=== PATIENT | male | born 1945 | race Caucasian/White ===

== ENCOUNTER 2021-11-18 16:46 | Outpatient (CLI) | payer MEDICARE, BC, SELFPAY ==
--- OUTSIDE RECORDS SUMMARY | 2021-11-18 09:30 | XMS_ITS | Clinical Summary ---
:1945 Author Organization [facility] [place] [address] Care Team Providers Name Role Phone Lit Moody MD Primary Care Provider Allergies No known active allergies Medications Medication Sig Dispensed Refills Start Date End Date Status atorvastatin Take 20 mg by mouth 0 Active (LIPITOR) 20 mg once daily. tablet warfarin (COUMADIN) 5 mg other days and 0 10/16/2019 Active 5 mg tablet 7.5 mg Thurs carvediloL (COREG) Take 1 Tablet (6.25 180 Tablet 0 10/19/2021 Active 6.25 mg mg) by mouth in the tabletIndications: morning and 1 Paroxysmal atrial Tablet (6.25 mg) in fibrillation (HC) the evening. Must keep office appointment on 12/03/[address] Gutierrez for further refills.. Active Problems Patient Care Coordination Note Formatting of this note might be differe nt from the original. HF/Structural/Prevention Research Jose Luis banegas Review Date: 04/16/19 Upcoming Visit Location: [facility] Age: 73 y.o. Research Purpose Insurance Type: Medicar e/Medicaid EF: 60-65 Valve/Imaging: HF: DNQ Structural: Tendyne Gonzales: no d/t mod MR Prevention: DNQ Problem Noted Date Cardiomyopathy 10/24/2016 Overview: Presumed rate related Persistent atrial fibrillation 08/12/2016 Encounters Date Type Specialty Care Team Description 10/16/2021 Refill Jatin Gutierrez MD Refill Request (Carvedilol) from Last 3 Months Social History Tobacco Use Types Packs/Day Years Used Date Never Smoker Smokeless Tobacco: Never Used Alcohol Use Standard Drinks/Week Comments Yes 7 (1 standard drink = 0.6 oz pure alcoho l) a Glass of wine a night Alcohol Habits Answer Date Recorded How often do you have a drink containing Not asked alcohol? How many drinks containing alcohol do you have Not asked on a typical day when you are drinking? How often do you have six or more drinks on one Not asked occasion? Comment: a Glass of wine a night 10/14/2016 Sex Assigned at Date Recorded Not on file Obstetrics History Last Filed Vital Signs Vital Sign Reading Time Taken Comments Blood Pressure 138/86 10/14/2020 10:39 AM CDT Pulse 68 10/14/2020 10:39 AM CDT Temperature 36.8 ??C (98.2 ??F) 01/05/2019 8:51 AM CDT Respiratory Rate 18 01/05/2019 8:51 AM CDT Oxygen Saturation 98% 10/14/2020 10:39 AM CDT Inhaled Oxygen Concentration - - Weight 92.1 kg (203 lb) 10/14/2020 10:39 AM CDT Height 182.9 cm (6') 10/14/2020 10:39 AM CDT Body Mass Index 27.53 10/14/2020 10:39 AM CDT Plan of Treatment Upcoming Encounters Date Type Specialty Care Team Description 12/03/2021 Office Visit Jatin Gutierrez MD [address] [address] (Wo rk) Health Maintenance Due Date Last Done Comments Tdap 1956 Depression screening for age 12+ 1957 Hepatitis C screening for age 0709/04/1963 18-79 Tetanus booster 1965 Zoster (shingles) series for age 0709/04/1995 50+ (1 of 2) Medicare Wellness for age 65+ 2010 Pneumococcal series for age 65+ (1 2010 - PCV) COVID-19 vaccine series (3 - 10/22/2020 05/22/2020, 021 Booster for Moderna series) BMI (ht and wt on same day) for 10/14/2021 10/14/2020, 10/04, age 18+ 04/18/2019, Additional history exists Influenza for age 65+ 11/04/2021 Results Not on filefrom Last 3 Months Insurance Payer Benefit Plan / Subscriber ID Effective Dates Phone Addre ss Type Group MEDICARE PART A MEDICARE PART A [id number] 2010-Presen ATTN: CLAIMS - HB USE ONLY HB ONLY t [address] [place] [address] MEDICARE PART B MEDICARE PART B [id number] 2010-Presen ATTN: CLAIMS - HB USE ONLY HB ONLY t [address] [place] [address] BLUE CROSS MR BLUE CROSS [id number] 2016-Presen [address] [address] [address] [place], [place] [id number] BLUE CROSS BLUE CROSS [id number] 2016-[place]en [address] [address] [address] [place], [place] [id number] Advance Directives Latest Code Status on File Code Status Date Activated Date Inactivated Comments Full Code 01/04/2019 10:03 AM 01/05/2019 12:32 PM Full Code 08/20/2018 2:05 PM 08/20/2018 5:22 PM Full Code 12/02/2016 6:47 AM 12/02/2016 7:44 PM Full Code 10/25/2016 9:00 AM 10/27/2016 2:46 PM Full Code 10/24/2016 12:54 PM 10/25/2016 9:00 AM Care Teams Explosives Mixer Operator Relationship Specialty Start Date End Date Lit Moody MD PCP - General Internal Medicine 08/12/161999 [place] [address]
--- OUTSIDE RECORDS SUMMARY | 2021-11-18 09:31 | XMS_ITS | Encounter Summary ---
:1945 Author Organization [facility] Address [address] [place] [address] Care Team Providers Name Role Phone Elsewhere, Pcp Primary Care Provider Unavailable Encounter Details Date Type Department Care Team Description 01/08/2018 Orders Only Department of Shaylee Serrano, Malignant Neoplasm Of Dermatology in [place] Cohn Upper Arm Basal Cell [place], [place] [address] [facility] Carcinoma Right [address] [place] [address] (Primary Dx) [place] [phone] Social History Tobacco Use Types Packs/Day Years Used Date Smoking Tobacco: Passive Smoke Exposure - Never Smoker Smokeless Tobacco: Never Alcohol Habits Answer Date Recorded How often do you have a drink containing 4 or more times a w [place] 12/06/2019 alcohol? How many drinks containing alcohol do you have 1 or 2 12/06/2019 on a typical day when you are drinking? How often do you have six or more drinks on one Never 12/06/2019 occasion? Comment: Not asked Social Isolation Answer Date Recorded In a typical week, how many times do you Twice a week 12/06/2019 talk on the phone with family, friends, or neighbors? How often do you get together with friends Twice a week 12/06/2019 or relatives? How often do you attend evangelical or anabaptism More than 4 time s per year 12/06/2019 services? Do you belong to any clubs or organizations Yes 12/06/2019 such as evangelical groups, unions, fraternal or athletic groups, or school groups? How often do you attend meetings of the 1 to 4 times per yea r 12/06/2019 clubs or organizations you belong to? Are you now , , , 12/06/2019 , never or living with a partner? Physical Activity Answer Date Recorded On average, how many days per week do you engage in moderate to 2 days 12/06/2019 strenuous exercise (like walking fast, running, jogging, dancing, swimming, biking, or other activities that cause a light or heavy sweat)? On average, how many minutes do you engage in exercise at th is 100 min 12/06/2019 level? Stress Answer Date Recorded Do you feel stress - tense, restless, nervous, or Only a lit tle 12/06/2019 anxious, or unable to sleep at night because your mind is troubled all the time - these days? Financial Resource Strain Answer Date Recorded How hard is it for you to pay for the very basics like Not h jose at all 12/06/2019 food, housing, medical care, and heating? Food Insecurity Answer Date Recorded Within the past 12 months, you worried that your food would Never true 12/06/2019 run out before you got money to buy more. Within the past 12 months, the food you bought just didn't N ever true 12/06/2019 last and you didn't have money to get more. Transportation Needs Answer Date Recorded In the past 12 months, has lack of transportation kept you f rom No 12/06/2019 medical appointments or from getting medications? In the past 12 months, has lack of transportation kept you f rom No 12/06/2019 meetings, work, or getting things needed for daily living? Sex Assigned at Date Recorded Not on file documented as of this encounter Plan of Treatment Scheduled Orders Name Type Priority Associated Diagnoses Order S chedule Dermatology misc minor Dermatology Routine Malignant Neoplasm Of Expected: procedure Upper Arm Basal Cell 018 Carcinoma Right (Approximate ), Expires: 2020 documented as of this encounter Visit Diagnoses Diagnosis Malignant Neoplasm Of Upper Arm Basal Ce ll Carcinoma Right - Primary documented in this encounter Care Teams Adult School Teacher Relationship Specialty Start Date End Date Elsewhere, Pcp PCP - General Family Medicine 10/09/17 documented as of this encounter
--- OUTSIDE RECORDS SUMMARY | 2021-11-18 09:31 | XMS_ITS | Encounter Summary ---
:1945 Author Organization [facility] Address [address] [place] [address] Care Team Providers Name Role Phone Elsewhere, Pcp Primary Care Provider Unavailable Encounter Details Date Type Department Care Team Description 01/14/2021 Orders Only [facility] PCP [facility] Sa paul Rouse M.D. [address] [place], [place] [phone] (Wo rk) Social History Tobacco Use Types Packs/Day Years Used Date Smoking Tobacco: Passive Smoke Exposure - Never Smoker Smokeless Tobacco: Never Alcohol Use Standard Drinks/Week Comments Yes 7 (1 standard drink = 0.6 oz pure alcoho l) Alcohol Habits Answer Date Recorded How often do you have a drink containing 4 or more times a w [place] 12/06/2019 alcohol? How many drinks containing alcohol [...] or relatives? How often do you attend gnosticist or judaism More than 4 time s per year 12/06/2019 services? Do you belong to any clubs or organizations Yes 12/06/2019 such as gnosticist groups, unions, fraternal or athletic groups, or [...] or getting things needed for daily living? Education Answer Date Recorded What is the highest level of school you have completed or e Doctorate 12/05/2019 highest degree you have received? Sex Assigned at Date Recorded Not on file documented as of this encounter Plan of Treatment Not on filedocumented as of this encounter Visit Diagnoses Not on filedocumented in this encounter Care Teams Store Administrative Assistant Relationship Specialty Start Date End Date Elsewhere, Pcp PCP - General Family Medicine 10/09/17 documented as of this encounter
--- OUTSIDE RECORDS SUMMARY | 2021-11-18 09:31 | XMS_ITS | Encounter Summary ---
:1945 Author Organization [facility] Address [address] [place] [address] Care Team Providers Name Role Phone Elsewhere, Pcp Primary Care Provider Unavailable Reason for Visit Reason Comments Basal Cell Carcinoma C&C Encounter Details Date Type Department Care Team Description 01/23/2018 Procedure visit Department of Shaylee Serrano Malignant Neoplasm Of Dermatology in Aleksander Medellin M.D. Upper Arm Basal Cell [place], [place] [address] [facility] Carcinoma Right [address] [place] [phone] Social History Tobacco Use Types Packs/Day Years Used Date Smoking Tobacco: Passive Smoke Exposure - Never Smoker Smokeless Tobacco: Never Alcohol Habits Answer Date Recorded How often do you have a drink containing 4 or more times a w [place] 12/06/2019 alcohol? How many drinks containing alcohol [...] or relatives? How often do you attend orthodoxy or oriental orthodox More than 4 time s per year 12/06/2019 services? Do you belong to any clubs or organizations Yes 12/06/2019 such as orthodoxy groups, unions, fraternal or athletic groups, or [...] on file documented as of this encounter Progress Notes Shaylee Serrano M.D. - 01/23/2018 11:45 AM CST CHIEF COMPLAINT Return for curettage and cryotherapy of superficial basal cell carcinoma involving right posterior upper arm and right upper paraspinal back HISTORY OF THE PRESENT ILLNESS Remi Aguirre is a pleasant 72 y.o. male who follows up for curettage and cryotherapy of right posterior upper arm and right upper paraspinal back. The patient has a history of multiple basal cellcarcinomas involving the abdomen and arms. 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 White on 12/26/17. During my most recent visit with the patient on 01/01/18, I biopsied his right posterior upper arm and right upper paraspinal back to rule out basal cell carcinoma. Dermatopathology returned the right arm as superficial basal cell carcinoma closely approximating biopsy edge, and the right upper back as a superficial basal cell carcinoma involving biopsy border. The patient denies any changes, bleeding, or irritation of the lesions since the previous visit. PAST MEDICAL HISTORY 1. History of nodular basal cell carcinoma involving the right upper forehead status post Mohs by Dr. White on 12/26/17. 2. History of multiple basal cell carcinoma with one on the left abdomen and several on??his arms inthe 1980s. FAMILY HISTORY No family history of melanoma PHYSICAL EXAM General: Awake, alert, in no acute distress, and with appropriate affect. Skin: Examination of the right upper arm reveals a 1.8 cm x 1.2 cm erythematous plaque and healed biopsy site. Examination of the right upper paraspinal back reveals a 1.2 cm x 1.5 cm red scaly plaque and healed biopsy site. No evidence for infection No evidence of recurrence forehead IMPRESSION AND PLAN #1 Right posterior upper arm and right upper paraspinal back: Superficial basal cell carcinomas x 2 We recommend definitive treatment with curettage & cryotherapy. After explaining the procedure, discussing the associated risks, benefits, and alternatives, and obtaining verbal informed consent, the lesion(s) underwent treatment with curettage and cryotherapy in the standard fashion. We treated the sites with two [id number] freeze-thaw cycles of liquid nitrogencryotherapy. The patient tolerated the procedure well. Defect size for right posterior upper arm:2.3x1.8cm and defect size for right upper paraspinal back: 2.0x2.0cm. Wound care was discussed. Patient offered educational materials. PATIENT EDUCATION Ready to learn. No apparent learning barriers were identified. Learning preferences include listening. Explained diagnosis and treatment plan; patient/guardian of patient expressed understanding of thecontent. By signing my name below, Katerin Mancuso, attest that this documentation has been prepared under the direction and in the presence of Shaylee Serrano M.D.. Electronically Signed: armida Maria. 01/23/2018. 9:01 AM . I, Shaylee Serrano M.D., personally performed the services described in this documentation. All medical record entries made by the scribe were at my direction and in my presence. I have reviewed the chart and discharge instructions (if applicable) and agree that the record reflects my personal performance and is accurate and complete. Shaylee Serrano M.D. . 01/23/2018. 12:47 PM. BOTOMY SERVICES TECHNICIAN documented in this encounter Miscellaneous Notes Addendum Note - Delmy Fernández R.N. - 01/23/2018 11:45 AM PHLEBOTOMY SERVICES TECHNICIAN Addended by: DELMY FERNÁNDEZ on: 01/23/2018 01:54 PM Modules accepted: Orders BOTOMY SERVICES TECHNICIAN documented in this encounter Plan of Treatment Not on filedocumented as of this encounter Visit Diagnoses Diagnosis Malignant Neoplasm Of Upper Arm Basal Ce ll Carcinoma Right documented in this encounter Administered Medications Inactive Administered Medications - up to 3 most recent administrations Medication Order MAR Action Action Date Dose Rate Site lidocaine-EPINEPHrine 1 %-1:100,000 Given 01/23/2018 1:00 PM PHLEBOTOMY SERVICES TECHNICIAN 4 mL injection 4 mL (XYLOCAINE W/EPI) 4 mL, infiltration, Once, On Mon01/23/18 at 1400, For 1 dose documented in this encounter Care Teams Engineering Specialist Relationship Specialty Start Date End Date Elsewhere, Pcp PCP - General Family Medicine 10/09/17 documented as of this encounter
--- OUTSIDE RECORDS SUMMARY | 2021-11-18 09:31 | XMS_ITS | Encounter Summary ---
:1945 Author Organization [facility] Address [address] [place] [address] Care Team Providers Name Role Phone Elsewhere, Pcp Primary Care Provider Unavailable Encounter Details Date Type Department Care Team Description 12/26/2017 Ancillary Procedure Department of Dermatology Social History Tobacco Use Types Packs/Day Years Used Date Smoking Tobacco: Passive Smoke Exposure - Never Smoker Smokeless Tobacco: Never Alcohol Habits Answer Date Recorded How often do you have a drink containing 4 or more times a w [place] 12/06/2019 alcohol? How many drinks containing alcohol [...] or relatives? How often do you attend moravian or anabaptism More than 4 time s per year 12/06/2019 services? Do you belong to any clubs or organizations Yes 12/06/2019 such as moravian groups, unions, fraternal or athletic groups, or [...] Not on filedocumented as of this encounter Procedures Procedure Name Priority Date/Time Associated Comments Diagnosis DERMATOLOGY IMAGE Routine 12/26/2017 11:15 Result s for this EXAM AM CDT procedure are i n the results section. documented in this encounter Results DERMATOLOGY IMAGE EXAM (12/26/2017 11:15 AM CDT) Specimen (Source) Anatomical Collection Method Collection Time Re ceived Time Location / / Volume Laterality 12/26/2017 12:00 PM CDT Narrative [facility] - 12/26/2017 11:15 AM CDT This order has been created and auto-finalized to support the import of images acquired without order. The clini so documentation to support these images can be found on the encounter marley t produced images. Provider Not In System IMG NON RAD IMAGING PROCEDUR ES Performing Organization Address City/State/ZIP Code Phon e Number [facility] NA documented in this encounter Visit Diagnoses Not on filedocumented in this encounter Care Teams Sap Hana Developer Relationship Specialty Start Date End Date Elsewhere, Pcp PCP - General Family Medicine 10/09/17 documented as of this encounter
--- OUTSIDE RECORDS SUMMARY | 2021-11-18 09:31 | XMS_ITS | Encounter Summary ---
:1945 Author Organization [facility] Address [address] [place] [address] Care Team Providers Name Role Phone Unavailable Primary Care Provider Unavailable Encounter Details Date Type Department Care Team Description 06/27/2017 Abstract DATA ABSTRACTION Lewis Mckoy R.N. [address] [place], [place] [phone] Social History Tobacco Use Types Packs/Day Years Used Date Smoking Tobacco: Never Assessed Alcohol Habits Answer Date Recorded How often do you have a drink containing 4 or more times a w [place] 12/06/2019 alcohol? How many drinks containing alcohol [...] or relatives? How often do you attend adventism or taoist More than 4 time s per year 12/06/2019 services? Do you belong to any clubs or organizations Yes 12/06/2019 such as adventism groups, unions, fraternal or athletic groups, or [...]
--- OUTSIDE RECORDS SUMMARY | 2021-11-18 09:31 | XMS_ITS | Encounter Summary ---
:1945 Author Organization [facility] Address [address] [place] [address] Care Team Providers Name Role Phone Elsewhere, Pcp Primary Care Provider Unavailable Encounter Details Date Type Department Care Team Description 10/31/2017 Ancillary Procedure Department of Dermatology Social History Tobacco Use Types Packs/Day Years Used Date Smoking Tobacco: Passive Smoke Exposure - Never Smoker Smokeless Tobacco: Never Alcohol Habits Answer Date Recorded How often do you have a drink containing 4 or more times a w [place] 12/06/2019 alcohol? How many drinks containing alcohol [...] or relatives? How often do you attend confucianist or taoism More than 4 time s per year 12/06/2019 services? Do you belong to any clubs or organizations Yes 12/06/2019 such as confucianist groups, unions, fraternal or athletic groups, or [...] Date/Time Associated Comments Diagnosis DERMATOLOGY IMAGE Routine 10/31/2017 3:04 PM Resu lts for this EXAM CDT procedure are i n the results section. documented in this encounter Results DERMATOLOGY IMAGE EXAM (10/31/2017 3:04 PM CDT) Specimen (Source) Anatomical Collection Method Collection Time Re ceived Time Location / / Volume Laterality 10/31/2017 3:02 PM CDT Narrative [facility] - 10/31/2017 3:04 PM CDT This order has been created and [...] on filedocumented in this encounter Care Teams Power Lineworker Relationship Specialty Start Date End Date Elsewhere, Pcp PCP - General Family Medicine 10/09/17 documented as of this encounter
--- OUTSIDE RECORDS SUMMARY | 2021-11-18 09:31 | XMS_ITS | Encounter Summary ---
:1945 Author Organization [facility] Address [address] [place] [address] Care Team Providers Name Role Phone Elsewhere, [...] containing 4 or more times a w [place] 12/06/2019 alcohol? How many drinks containing alcohol [...] How often do you attend evangelical or church More than 4 time s per year [...] of images acquired without order. The clini os documentation to support these images can be found on the encounter marley t produced images. Provider Not In System IMG NON RAD IMAGING PROCEDUR ES Performing Organization Address City/State/ZIP Code Phon e Number [facility] NA documented in this encounter Visit Diagnoses Not on filedocumented in this encounter Care Teams Support Worker Relationship Specialty Start Date End Date Elsewhere, Pcp PCP - General Family Medicine 10/09/17 documented as of this encounter
--- OUTSIDE RECORDS SUMMARY | 2021-11-18 09:31 | XMS_ITS | Encounter Summary ---
:1945 Author Organization [facility] Address [address] [place] [address] Care Team Providers Name Role Phone Elsewhere, Pcp Primary Care Provider Unavailable Encounter Details Date Type Department Care Team Description 12/26/2017 Procedure visit Department of Vitaly Wihte Basal Ce ll Carcinoma Dermatology in M.D. Skin Other Parts Face [place], [place] [address] [facility] [address] [place] [id number] [phone] Social History Tobacco Use Types Packs/Day Years Used Date Smoking Tobacco: Passive Smoke Exposure - Never Smoker Smokeless Tobacco: Never Alcohol Habits Answer Date Recorded How often do you have a drink containing 4 or more times a w [place] 12/06/2019 alcohol? How many drinks containing alcohol [...] or relatives? How often do you attend sabianist or catholic More than 4 time s per year 12/06/2019 services? Do you belong to any clubs or organizations Yes 12/06/2019 such as sabianist groups, unions, fraternal or athletic groups, or [...] on file documented as of this encounter Last Filed Vital Signs Vital Sign Reading Time Taken Comments Blood Pressure 106/65 12/26/2017 9:00 AM CDT Pulse 61 12/26/2017 9:00 AM CDT Temperature - - Respiratory Rate - - Oxygen Saturation - - Inhaled Oxygen Concentration - - Weight - - Height - - Body Mass Index - - documented in this encounter Procedure Notes Price Flores M.D. - 12/26/2017 8:30 AM CDT PREOP INDICATION: REMOVAL. Date of Surgery: 12/26/2017 Surgeon: Dr. Vitaly White Playground Aide: Dr. Price Flores M.D. Location: [facility] Floor:16 Room:[facility] Visit Type: Outpatient PostOp Diagnosis: Nodular basal cell carcinoma Anatomic Location: Right forehead Preoperative size: 0.6 x 0.7 cm [facility] number: 8/7 Procedure: Mohs micrographic surgery with intermediate layered closure Prior to the procedure, final verification of the patient identity and correct marked surgical site was performed. Procedural pause conducted to verify: correct patient identity, procedure to be performed and as applicable, correct side and site, correct patient position, and availability of implants, special equipment or special requirements. INFORMED CONSENT Discussed the risks, benefits, alternatives, and the necessity of other members of the healthcare team participating in the procedure. All questions answered and consent given. PATIENT EDUCATION Ready to learn, no apparent learning barriers were identified; learning preferences include listening. Explained diagnosis and treatment plan; patient expressed understanding of the content. Preoperative medications: None The anesthesia used was 1% lidocaine and 0.25% bupivacaine with 1:200,000 epinephrine. The skin was prepped in a sterile fashion with Hibiclens. Histologic tumor-free marginswere obtained in 1 stages (2 blocks) by standard Mohs micrographic techniques with the Mohs surgeon performing both the surgery and pathology. Postoperative size: 0.8 x 1.0 cm. Anesthesia with 1% lidocaine with 1:200,000 epinephrine and another sterile prep were performed. An intermediate layered closure was planned, and Burow's triangles were excised from opposite poles of the defect in the direction of the skin tension lines. The wound was undermined, and hemostasis was obtained with electrocoagulation. The wound edges were closed with 5-0 Monocryl subcutaneous sutures and Dermabond for skin closure. Postoperative length: 3.2 cm. Estimated blood loss: Minimal. Complications: None. Wound care: Routine. Postoperative medications: None documented in this encounter Consult Notes Price Flores M.D. - 12/26/2017 8:30 AM CDT Referral Shaylee Serrano M.D. Chief Complaint Nodular basal cell carcinoma, right forehead HISTORY OF THE PRESENT ILLNESS Remi Aguirre is a pleasant 72 y.o. male who comes in for definitive surgical treatment of a recently biopsied nodular basal cell carcinoma from the right forehead. He was recently seen by Dr. Serrano on 10/31/2017 when the above lesion was sampled. He has a prior history of multiple nonmelanoma skin cancers but these are primarily occurred on his trunk and extremities. This is his 1st Mohs procedure. He has no other skin concerns today. He is otherwise well and in his normal state of health. He plans to be seen next week for full skin cancer screening evaluation. The dermatologic surgery preoperative information sheet was reviewed. The patient endorses a historyof prior skin cancer, atrial fibrillation, and high blood pressure. The patient denies a history of pacemaker, defibrillator, lung disease, liver disease, stroke, infectious disease, diabetes, organ transplant or bleeding problems. The patient denies artificial joints or other implants. He does not require antibiotics prior to other surgical procedures. Daily aspirin: None Anticoagulation: Coumadin, last INR 2.9 three weeks ago Tobacco use: None Alcohol use: Yes PHYSICAL EXAM Vitals: Blood pressure 106/65 pulse 61 General: Awake, alert, in no acute distress, and with appropriate affect. Skin: A limited skin examination was performed per patient preference. On the right forehead there is a small approximately 0.6 x 0.7 flesh-colored indented area corresponding to the biopsy site. No overt residual disease can be seen. No surrounding evidence of infection. IMPRESSION AND PLAN #1 Nodular basal cell carcinoma, right forehead The patient presents to our surgical area today for definitive treatment of the above lesion. Given the nature and location of this lesion we recommended Mohs surgery. We discussed the benefits of lesion removal today. We discussed the risks including, but not limited to, infection, bleeding, pain, scar formation, and lesion recurrence. We also discussed the risk to sensory and motor nerves in this area. Patient wished to proceed. In brief, the lesion was cleared in 1 stages and closed primarily. Dermabond was used for skin closure. The patient tolerated the procedure well. Please see the operativenote for further details. PROCEDURAL PAUSE Procedural pause conducted to verify: correct patient identity, procedure to be performed, and as applicable, correct side and site, correct patient position, and availability of implants, special equipment, or special requirements. PATIENT EDUCATION Ready to learn. No apparent learning barriers were identified. Learning preferences include listening. Explained diagnosis and treatment plan; patient/guardian of patient expressed understanding of thecontent. INFORMED CONSENT Discussed the risks, benefits, alternatives, and the necessity of other members of the healthcare team participating in the procedure. All questions answered and consent given. Associated attestation - Vitaly White M.D. - 12/26/2017 11:44 AM CDT I saw and evaluated the patient, participating in the forde elements of the service. I discussed the findings, assessment and plan with the resident and agree with resident???s findings and plan as documented in the resident's note. I was immediately available for the entirety of the procedure(s) and present for the forde and critical portions. documented in this encounter Plan of Treatment Pending Results Name Type Priority Associated Diagnoses Date/Ti al MOHS SURGICAL CASE Pathology and Routine 12/27/19 1:53 PM Cytology CDT documented as of this encounter Visit Diagnoses Diagnosis Basal Cell Carcinoma Skin Other Parts Fa ce documented in this encounter Administered Medications Active Administered Medications - up to 3 most recent administrations Medication Order MAR Action Action Date Dose Rate Site pumyvuszmqz-nfshapruj-ANYOQMYpvmr Given 12/26/2017 10:20 AM CDT 2 mL 0.25%-1%-1:200,000 injection 2-25 mL 2-25 mL, injection, As needed, may repeat if the patient complains of pain/discomfort at the site up to 50 mL for entire procedure, Starting on Mon12/26/17 at 0922 lidocaine-EPINEPHrine 1%-1:200,000 injection Given 8 10:20 AM CDT 2 mL 2-50 mL (XYLOCAINE W/EPI) 2-50 mL, infiltration, As needed, may repeat if the patient complains of pain/discomfort at the site up to 50 mL for entire procedure, Starting on Mon12/26/17 at 0922 documented in this encounter Care Teams Cardiac Cath Technician Relationship Specialty Start Date End Date Elsewhere, Pcp PCP - General Family Medicine 10/09/17 documented as of this encounter
--- OUTSIDE RECORDS SUMMARY | 2021-11-18 09:31 | XMS_ITS | Encounter Summary ---
:1945 Author Organization [facility] Address [address] [place] [address] Care Team Providers Name Role Phone Elsewhere, [...] containing 4 or more times a w [place] 12/06/2019 alcohol? How many drinks containing alcohol [...] or relatives? How often do you attend yazdanism or adventist More than 4 time s per year 12/06/2019 services? Do you belong to any clubs or organizations Yes 12/06/2019 such as yazdanism groups, unions, fraternal or athletic groups, or [...] on filedocumented in this encounter Care Teams Locomotive Boilermaker Relationship Specialty Start Date End Date Elsewhere, Pcp PCP - General Family Medicine 10/09/17 documented as of this encounter
--- OUTSIDE RECORDS SUMMARY | 2021-11-18 09:31 | XMS_ITS | Encounter Summary ---
:1945 Author Organization [facility] Address [address] [place] [address] Care Team Providers Name Role Phone Elsewhere, Pcp Primary Care Provider Unavailable Reason for Referral Outpatient (Routine) - Closed Specialty Diagnoses / Procedures Referred By Contact Refer red To Contact Dermatology Shaylee Serrano M.D . [facility] Region [address] [place] [address] Referral ID Status Reason Start Date Expiration Date Visits Requ ested Visits Authorized [id number] Closed 10/31/2017 10/31/2018 1 1 Reason for Visit Reason Comments Lesion non healing lesion on forehe ad that has been bleeding for apz 2-3 mos Appointment Request (Routine) - Closed Specialty Diagnoses / Procedures Referred By Contact Refer red To Contact Dermatology Referral ID Status Reason Start Date Expiration Date Visits Requ ested Visits Authorized [id number] Closed 10/09/2017 10/09/2018 1 1 Encounter Details Date Type Department Care Team Description 10/31/2017 Office Visit Department of Shaylee Serrano, Tumor Skin Uncertain Behavior (Primary Dx); Dermatology in [place] [facility] Keratosis [place], [place] [address] [phone] Social History Tobacco Use Types Packs/Day Years Used Date Smoking Tobacco: Passive Smoke Exposure - Never Smoker Smokeless Tobacco: Never Alcohol Habits Answer Date Recorded How often do you have a drink containing 4 or more times a w [place] 12/06/2019 alcohol? How many drinks containing alcohol [...] or relatives? How often do you attend cheondoism or christianity More than 4 time s per year 12/06/2019 services? Do you belong to any clubs or organizations Yes 12/06/2019 such as cheondoism groups, unions, fraternal or athletic groups, or [...] on file documented as of this encounter Consult Notes Shaylee Serrano M.D. 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 He presents for evaluation of a non-healing skin lesion on his forehead. The lesion has been present for about one year. He reports that this lesion bled intermittently for the last 2-3 months. The lesion would not completely heal. The patient has a history of multiple basal cell carcinomas with one on his left abdomen and several on his arms in the treated by an outside feed adviser Casper/Christina. Since moving to [place], [place] he has not had regular skin exams by his primary carephysician and he has not seen dermatology in many years. PAST MEDICAL HISTORY Multiple basal cell carcinoma with one on the left abdomen and several on his arms in the PHYSICAL EXAM General: Awake, alert, in no acute distress, and with appropriate affect. Skin: Examination of the right central forehead reveals a 4 mm x 4.5 mm pearly papule with some telangectasia suspicious for a basal cell carcinoma. Examination of the right presybeterian area reveals a dilated pore. Examination of the left cheek reveals several sebaceous hyperplasia. Examination of the leftear helix reveals three actinic keratoses. Examination of the left forehead reveals one actinic keratosis. IMPRESSION AND PLAN #1 Right central forehead (right forehead): Rule out basal cell carcinoma We recommend a shave biopsy. Photograph taken today with patient's verbal consent. We will correspond as to the results and if any further treatment is needed. PROCEDURAL PAUSE Procedural pause conducted to verify: correct patient identity, procedure to be performed, and as applicable, correct side and site, correct patient position, and availability of implants, special equipment, or special requirements. PROCEDURE DETAILS Shave biopsy. We explained the potential diagnosis and recommended that we obtain a biopsy. The risks and benefitsof the procedure were discussed, and the patient consented to these procedures. The patient denies any allergies to local anesthetics. Using 1% lidocaine without epinephrine for local anesthesia due tothe potential drug interaction with his Coreg, a shave biopsy was obtained from the right central forehead. Biopsy submitted to Dermatopathology for H&E. Special stains will be performed as indicated. The bleeding was well controlled with application of aluminum chloride. Dressing was applied, andwound care instructions were explained. Biopsy results and any further recommendations will be communicated to the patient by letter. Patient given pamphlet [id number]. Discussed the risks, benefits, alternatives, and the necessity of other members of the healthcare team participating in the procedure. All questions answered and consent given. If the biopsy is positive the patient will be referred to [place] for Mohs surgery. I explained to him what is involved with Mohs surgery. #2 Left ear and left forehead: Actinic keratosis CONSENT Discussed the risks, benefits, alternatives, and the necessity of other members of the healthcare team participating in the procedure. All questions answered and consent given. ?? PROCEDURE INFORMATION Given the precancerous nature of this lesion(s), treatment is medically indicated. After discussion of the risks, benefits and alternatives to treatment with cryotherapy, informed consent was obtained.We treated a total of 4 lesion(s) with two 20-second freeze-thaw cycles of liquid nitrogen cryotherapy. The patient tolerated the procedure well. Aftercare instructions were provided in written and verbal form to the patient. Should any of these lesions recur, the patient should return for biopsy or further evaluation. Follow up in 1-2 months for recheck if these do not completely resolve. #3 Right presybeterian: Dilated pore I reviewed treatment options with the patient including surgical removal, tretinoin cream or continued observation. I do not recommend surgical removal. I offered tretinoin cream however I did explain that this may not lead to resolution. The patient prefers continued observation at this time. I have asked the patient to return in the next 1-2 months for a full skin exam. PATIENT EDUCATION Ready to learn. No apparent learning barriers were identified. Learning preferences include listening. Explained diagnosis and treatment plan; patient/guardian of patient expressed understanding of thecontent. By signing my name below, I, Gaurang Chappell, attest that this documentation has been prepared underthe direction and in the presence of Shaylee Serrano M.D.. Electronically Signed: armida Starks. 10/31/2017. 2:33 PM . I, Shaylee Serrano M.D., personally performed the services described in this documentation. All medical record entries made by the scribe were at my direction and in my presence. I have reviewed the chart and discharge instructions (if applicable) and agree that the record reflects my personal performance and is accurate and complete. Shaylee Serrano M.D. . 10/31/2017. 4:40 PM. documented in this encounter Plan of Treatment Scheduled Referrals Name Type Priority Associated Order Schedule Diagnoses Dermatology office Outpatient Referral Routine Ex pected: visit (clinic) 10/31/2017 (Approximate), Expires: 10/31/2020 documented as of this encounter Procedures Procedure Name Priority Date/Time Associated Comments Diagnosis DERMATOPATHOLOGY CONSULT Routine 10/31/2017 3:11 Tumor Skin Results for this PM CDT Uncertain Behavior procedure are in the results section. documented in this encounter Results Dermatopathology Consult (10/31/2017 3:11 PM CDT) Component Value Ref Test Analysis Performed At [facility] [employer] Range Method Time Signature Gross Received in formalin labeled with the patient's name, 11/07/2017 [facility] Description: medical record number, and right forehead is a 0.5 x 0.3 4:00 PM CDT LABORATORIES - x 0.1 cm pale olguin skin shave biopsy. No discrete lesion is [facility] grossly identified on the skin surface. ??The specimen is CAMPUS bisected and submitted entirely in cassette A1. Grossed by RICKY. Participated in [place] Shi, 11/07/2017 [facility] the D.OSunshine-Patholog 4:00 PM CDT LABORATORIES - Interpretation y Fellow [facility] Report Armani Elder 11/07/2017 [facility] electronically Luz Maria, 4:00 PM CDT LABORATORIES - signed by Suki [facility] 11/07/2017 [facility] 4:00 PM CDT LABORATORIES - [facility] Interpetation FINAL DIAGNOSIS 11/07/2017 [facility] A. ??DermPath Consult Wet Tissue; Right forehead , Skin 4:00 PM CDT LABORATORIES - shave biopsy: ??Nodular basal cell carcinoma, involving [facility] Specimen Anatomical Collection Method Collection Time Receive d Time (Source) Location / / Volume Laterality Tissue 10/31/2017 3:11 PM 8 CDT 10:24 AM CDT Narrative This result has an attachment that is no t available. Shaylee Serrano M.D. LAB PATH DERM ORDERABLES Performing Organization Address City/State/ZIP Code Phon e Number [facility] LABORATORIES - [address] [place], [place] [address] [facility] documented in this encounter Visit Diagnoses Diagnosis Tumor Skin Uncertain Behavior - Primary Keratosis Actinic documented in this encounter Administered Medications Inactive Administered Medications - up to 3 most recent administrations Medication Order MAR Action Action Date Dose Rate Site lidocaine 10 mg/mL (1 %) injection 1 Given 10/31/2017 3:58 PM CD T 1 mL mL (XYLOCAINE) 1 mL, infiltration, Once, On Mon10/31/17 at 1515, For 1 dose documented in this encounter Care Teams Couturiere Relationship Specialty Start Date End Date Elsewhere, Pcp PCP - General Family Medicine 10/09/17 documented as of this encounter
--- OUTSIDE RECORDS SUMMARY | 2021-11-18 09:31 | XMS_ITS | Encounter Summary ---
:1945 Author Organization [facility] Address [address] [place] [address] Care Team Providers Name Role Phone Elsewhere, Pcp Primary Care Provider Unavailable Reason for Visit Reason Comments Skin Check Appointment Request (Routine) - Closed Specialty Diagnoses / Procedures Referred By Contact Refer red To Contact Dermatology Referral ID Status Reason Start Date Expiration Date Visits Requ ested Visits Authorized [id number] Closed 06/09/2020 06/09/2021 1 1 Encounter Details Date Type Department Care Team Description 08/31/2020 Office Visit Department of Shaylee Serrano, Keratosis Actinic (Primary Dx); Dermatology in [place], [place] [address] [facility] Keratosis Seborrheic [address] [phone] Social History Tobacco Use Types Packs/Day Years Used Date Smoking Tobacco: Passive Smoke Exposure - Never Smoker Smokeless Tobacco: Never Alcohol Use Standard Drinks/Week Comments Yes 7 (1 standard drink = 0.6 oz pure alcoho l) Alcohol Habits Answer Date Recorded How often do you have a drink containing 4 or more times a w [place] 12/06/2019 alcohol? How many drinks containing alcohol [...] or relatives? How often do you attend advent or christian More than 4 time s per year 12/06/2019 services? Do you belong to any clubs or organizations Yes 12/06/2019 such as advent groups, unions, fraternal or athletic groups, or [...] level of school you have completed or th e Doctorate 12/05/2019 highest degree you have received? Sex Assigned at Date Recorded Not on file documented as of this encounter Progress Notes Shaylee Serrano M.D. - 08/31/2020 4:00 PM CDT SUBJECTIVE CHIEF COMPLAINT / REASON FOR VISIT Skin cancer recheck HISTORY OF PRESENT ILLNESS Mr. Remi Aguirre is a 74 y.o. male who presents today for a full skin cancer screening examination. The patient was last seen by me in Dermatology clinic on 02/11/2020. The patient has a history of multiple non melanoma skin cancers, most recently superficial basal cell carcinoma??x 2 involving??right posterior upper arm and right upper paraspinal back,??status post curettage and cryotherapy here??at [facility]??on 01/23/18. The patient denies a personal or family history for melanoma. No areas of concern today. No Known Allergies MEDICAL HISTORY 1. Several??basal cell carcinomas involving left abdomen and arms, treated elsewhere in the 2.Nodular basal cell carcinoma??involving??right upper forehead,??status post Mohs surgery??on 12/26/17??by Dr. White??at [facility] 3.??Superficial basal cell carcinoma??x2 involving??right posterior upper arm and right upper paraspinal back,??status post curettage and cryotherapy here??at [facility]??on 01/23/18 4. Negative for melanoma ?? FAMILY HISTORY No family history for melanoma. OBJECTIVE PHYSICAL EXAMINATION General: Awake, alert, in no acute distress, and with appropriate affect. Eyes: No scleral injection or icterus. No eyelid abnormalities. Lymph: No lower extremity edema. Skin: I have examined the scalp, face, neck, chest, abdomen, back, bilateral upper extremities, and bilateral lower extremities. Examination of the left abdomen, arms, right posterior upper arm, right upper paraspinal back, rightupper forehead reveals no clinical evidence for local recurrence of non melanoma skin cancers. Examination today reveals a total of 12 AKs, includin left ear helix, 1 left upper forehead, 2 left cheek, 5 left forearm, 1 right sauceda, 2 left sauceda Examination of face, trunk, and extremities reveals multiple benign appearing nevi and lentigines, and multiple SKs. Examination today reveals no suspicious lesions for skin cancer. ASSESSMENT / PLAN #1 Left abdomen, arms, right posterior upper arm, right upper paraspinal back, right upper forehead:History of multiple non melanoma skin cancers, no recurrence Examination today reveals no clinical evidence of recurrence of non-melanoma skin cancers. Follow upimmediately if changes are noticed during monthly self examination. Otherwise followup in 6 months. #2 Face, left forearm, right and left sauceda: AK x 12 Given the precancerous nature of this lesion(s), treatment is medically indicated. After discussion of the risks, benefits and alternatives to treatment with cryotherapy, informed consent was obtained.We treated a total of 12 lesion(s) with two 10-15 second freeze-thaw cycles of liquid nitrogen cryoth erapy. The patient tolerated the procedure well. Aftercare instructions were provided in written andverbal form to the patient. Should any of these lesions recur, the patient should return for biopsy or further evaluation. Discussed the risks, benefits, alternatives, and the necessity of other members of the healthcare team participating in the procedure. All questions answered and consent given. #3 Face, trunk, and extremities: Seborrheic keratosis The benign nature of the skin lesion(s) was discussed with the patient. No treatment is required. I recommend continued observation. Should symptoms or changes develop related to this condition, I would recommend a return visit for reassessment. #4 Face, trunk, and extremities: Multiple benign appearing nevi and lentigines The ABCDE criteria for melanoma was reviewed with the patient. None of the patient's nevi reach the clinical threshold for biopsy. I recommend continued sun protection, self-skin examinations, and observation. Should any of the patient's nevi change in size, color, texture, or shape or develop symptoms such as itching or bleeding, I recommend an immediate return visit for reassessment. PATIENT EDUCATION: Ready to learn. No apparent learning barriers were identified. Learning preferences include listening. Explained diagnosis and treatment plan; patient/guardian of patient expressed understanding of thecontent. By signing my name below, I, Pauly Perez, attest that this documentation has been prepared underthe direction and in the presence of Shaylee Serrano M.D. Electronically Signed: armida Alejo. Shaylee Mancuso M.D., personally performed the services described in this documentation. All medical record entries made by the scribe were at my direction and in my presence. I have reviewed the chart and discharge instructions (if applicable) and agree that the record reflects my personal performance and is accurate and complete. Shaylee Serrano M.D. documented in this encounter Plan of Treatment Not on filedocumented as of this encounter Visit Diagnoses Diagnosis Keratosis Actinic - Primary Nevi Multiple Keratosis Seborrheic documented in this encounter Care Teams Drug Safety Coordinator Relationship Specialty Start Date End Date Elsewhere, Pcp PCP - General Family Medicine 10/09/17 documented as of this encounter
--- OUTSIDE RECORDS SUMMARY | 2021-11-18 09:31 | XMS_ITS | Encounter Summary ---
:1945 Author Organization [facility] Address [address] [place] [address] Care Team Providers Name Role Phone Elsewhere, Pcp Primary Care Provider Unavailable Reason for Referral Outpatient (Routine) - Closed Specialty Diagnoses / Procedures Referred By Contact Refer red To Contact Dermatology Shaylee Serrano M.D . [facility] Region [address] [place] [address] Referral ID Status Reason Start Date Expiration Date Visits Requ ested Visits Authorized [id number] Closed 12/09/2019 12/08/2020 1 1 Scheduling Instructions Recheck lesion left knee in 2 months Reason for Visit Reason Comments Skin Check Appointment Request (Routine) - Closed Specialty Diagnoses / Procedures Referred By Contact Refer red To Contact Dermatology Referral ID Status Reason Start Date Expiration Date Visits Requ ested Visits Authorized [id number] Closed 08/06/2019 08/05/2020 1 1 Encounter Details Date Type Department Care Team Description 12/09/2019 Office Visit Department of Shaylee Serrano, Keratosis Actinic (Primary Dx); Dermatology in [place] Keratosis Seborrheic; [place], [place] [address] [facility] Cancer Skin Basal Cell Personal History [address] [place] [phone] Social History Tobacco Use Types Packs/Day Years Used Date Smoking Tobacco: Passive Smoke Exposure - Never Smoker Smokeless Tobacco: Never Alcohol Use Standard Drinks/Week Comments Yes 7 (1 standard drink = 0.6 oz pure alcoho l) Alcohol Habits Answer Date Recorded How often do you have a drink containing 4 or more times a w [place] 12/06/2019 alcohol? How many drinks containing alcohol [...] or relatives? How often do you attend baptism or christian More than 4 time s per year 12/06/2019 services? Do you belong to any clubs or organizations Yes 12/06/2019 such as baptism groups, unions, fraternal or athletic groups, or [...] encounter Progress Notes Shaylee Serrano M.D. - 12/09/2019 8:00 AM CDT SUBJECTIVE CHIEF COMPLAINT / REASON FOR VISIT Skin cancer recheck HISTORY OF PRESENT ILLNESS Mr. Remi Aguirre is a 74 y.o. male who presents today for a full skin cancer screening examination. The patient was last seen by me in Dermatology clinic on 08/06/2019. The patient has a history of multiple non melanoma skin cancers, most recently superficial basal cell carcinoma x 2 involving the right posterior upper arm and the right upper paraspinal back, status post C&C treated on 01/23/2018 at [facility]. The patient denies a personal or family history for melanoma. No areas of concern today. No Known Allergies MEDICAL HISTORY 1. Several??basal cell carcinomas involving left abdomen and arms, treated elsewhere in the 2. Superficial basal cell carcinoma??x2 involving??right posterior upper arm and right upper paraspinal back,??status post curettage and cryotherapy here at [facility] on 01/23/18 3.??Nodular basal cell carcinoma??involving??right upper forehead,??status post Mohs surgery??on 12/26/17??by Dr. White??at [facility] 4. Negative for melanoma FAMILY HISTORY No family history for melanoma. OBJECTIVE PHYSICAL EXAMINATION General: Awake, alert, in no acute distress, and with appropriate affect. Eyes: No scleral injection or icterus. No eyelid abnormalities. Lymph: No lower extremity edema. Skin: I have examined the scalp, face, neck, chest, abdomen, back, bilateral upper extremities, and bilateral lower extremities. Examination of the skin reveals no clinical evidence for local recurrence of non melanoma skin cancers. Examination today reveals a total of 13 AKs, includin involving the right ear helix, 4 involvingthe forehead, 1 involving the left cheek, 1 involving the left sideburn, 2 involving the right dorsal hand, 1 involving the left forearm, 1 left upper posterior thigh, 1 involving the left upper back. Examination of the left lateral knee area reveals a 2.4 cm x 1.0 cm slightly pink blanchable scaly patch that either represents an LK or some dry skin, apply moisturizer twice daily. Examination of the legs, dorsal feet, and back reveals several seborrheic keratosis. Examination of the face, trunk, and extremities reveals the occasional benign appearing nevi and lentigines. Examination today reveals no suspicious lesions for skin cancer. ASSESSMENT / PLAN #1 Face: Actinic keratosis x 13 lesions Given the precancerous nature of this lesion(s), treatment is medically indicated. After discussion of the risks, benefits and alternatives to treatment with cryotherapy, informed consent was obtained.We treated a total of 13lesion(s) with two 36-30-rimrrk freeze-thaw cycles of liquid nitrogen cryothe rapy. The patient tolerated the procedure well. Aftercare instructions were provided in written and verbal form to the patient. Should any of these lesions recur, the patient should return for biopsy or further evaluation. Discussed the risks, benefits, alternatives, and the necessity of other membersof the healthcare team participating in the procedure. All questions answered and consent given. #2 Trunk and extremities: Seborrheic keratosis The benign nature of the skin lesion(s) was discussed with the patient. No treatment is required. I recommend continued observation. Should symptoms or changes develop related to this condition, I would recommend a return visit for reassessment. #3 Left lateral knee: Dry skin vs LK, doubt BCC I have recommended he apply moisturizer such as Vanicream to the affected area twice daily for two weeks. Follow up in two months for re-evaluation if not resolved. #4 Face, trunk, and extremities: Benign appearing nevi and lentigines Face, trunk, and extremities: Multiple benign appearing [...] recommend an immediate return visit for reassessment. #5 History of multiple non-melanoma skin cancers, no recurrence Examination today reveals no clinical evidence of recurrence. Follow up immediately if changes are noticed during monthly self examination. Otherwise followup in 6 months. PATIENT EDUCATION: Ready to learn. No apparent learning barriers were identified. Learning preferences include listening. Explained diagnosis and treatment plan; patient/guardian of patient expressed understanding of thecontent. By signing my name below, I, Pauly Perez, attest that this documentation has been prepared underthe direction and in the presence of Shaylee Serrano M.D. Electronically Signed: armida Alejo. 12/12/2019. I, Shaylee Serrano M.D., personally performed the services described in this documentation. All medical record entries made by the scribe were at my direction and in my presence. I have reviewed the chart and discharge instructions (if applicable) and agree that the record reflects my personal performance and is accurate and complete. Shaylee Serrano M.D. 12/11. documented in this encounter Plan of Treatment Scheduled Referrals Name Type Priority Associated Order Schedule Diagnoses Dermatology office Outpatient Referral Routine Ex pected: visit (clinic) 03/10/2020 (Approximate), Expires: 12/08/2022 documented as of this encounter Visit Diagnoses Diagnosis Keratosis Actinic - Primary Keratosis Seborrheic Cancer Skin Basal Cell Personal History documented in this encounter Care Teams Residential Appraiser Relationship Specialty Start Date End Date Elsewhere, Pcp PCP - General Family Medicine 10/09/17 documented as of this encounter
--- OUTSIDE RECORDS SUMMARY | 2021-11-18 09:31 | XMS_ITS | Encounter Summary ---
:1945 Author Organization [facility] Address [address] [place] [address] Care Team Providers Name Role Phone Elsewhere, Pcp Primary Care Provider Unavailable Reason for Visit Reason Comments Skin Problem left knee Outpatient (Routine) - Closed Specialty Diagnoses / Procedures Referred By Contact Refer red To Contact Dermatology Shaylee Serrano M.D . [facility] Region [address] [place] [address] Referral ID Status Reason Start Date Expiration Date Visits Requ ested Visits Authorized [id number] Closed 12/09/2019 12/08/2020 1 1 Encounter Details Date Type Department Care Team Description 02/11/2020 Office Visit Department of Shaylee Serrano, Keratosis Lichenoid Dermatology in [place] (Primary Dx) [place], [place] [address] [place] [phone] Social History Tobacco Use Types Packs/Day Years Used Date Smoking Tobacco: Passive Smoke Exposure - Never Smoker Smokeless Tobacco: Never Alcohol Use Standard Drinks/Week Comments Yes 7 (1 standard drink = 0.6 oz pure alcoho l) Alcohol Habits Answer Date Recorded How often do you have a drink containing 4 or more times a w [place] 12/06/2019 alcohol? How many drinks containing alcohol [...] or relatives? How often do you attend anabaptism or rastafari More than 4 time s per year 12/06/2019 services? Do you belong to any clubs or organizations Yes 12/06/2019 such as anabaptism groups, unions, fraternal or athletic groups, or [...] minutes do you engage in exercise at is 100 min 12/06/2019 level? Stress Answer [...] encounter Progress Notes Shaylee Serrano M.D. - 02/11/2020 3:00 PM CST SUBJECTIVE CHIEF COMPLAINT / REASON FOR VISIT Recheck skin lesion involving the left lateral knee HISTORY OF PRESENT ILLNESS Remi Aguirre is a pleasant 74 y.o. male who follows up for a recheck of a lesion involving hisleft lateral knee. The patient was last seen by me in Dermatology clinic on 12/09/2019 and at that time we felt this lesion involving the left lateral knee was compatible with dry skin vs and LK, but Idoubted BCC. I asked him to apply a moisturizer like Vanicream to the affected area twice daily for two weeks/ Today he feels the area has improved since his previous visit. He states has been using moisturizer twice daily since his previous visit and feels that the scaling will go away for a short period but then comes back without total resolution. MEDICAL HISTORY 1. Several??basal cell carcinomas involving left abdomen and arms, treated elsewhere in the 2. Superficial basal cell carcinoma??x2 involving??right posterior upper arm and right upper paraspinal back,??status post curettage and cryotherapy here at [facility] on 01/23/18 3.??Nodular basal cell carcinoma??involving??right upper forehead,??status post Mohs surgery??on 12/26/17??by Dr. White??at [facility] 4. Negative for melanoma ?? FAMILY HISTORY No family history for melanoma. OBJECTIVE PHYSICAL EXAMINATION General: Awake, alert, in no acute distress, and with appropriate affect. Skin: Limited skin exam done today. Examination of the left lateral knee area reveals a 2. cm x 1.0 cm slightly pink blanchable scaly patch that either represents an LK or some dry skin. Nothing indurated or infiltrative. ASSESSMENT / PLAN #1 Left lateral knee: Resolving LK vs dry skin Continue applying moisturizer twice daily for two more weeks. If lesion reoccurs after stopping the moisturizer, follow up for re-evaluation and we may consider a possible shave biopsy at that time if it should reoccur. PATIENT EDUCATION: Ready to learn. No apparent learning barriers were identified. Learning preferences include listening. Explained diagnosis and treatment plan; patient/guardian of patient expressed understanding of thecontent. By signing my name below, I, Pauly Perez, attest that this documentation has been prepared underthe direction and in the presence of Shaylee Serrano M.D. Electronically Signed: armida Alejo. 02/10. I, Shaylee Serrano M.D., personally performed the services described in this documentation. All medical record entries made by the scribe were at my direction and in my presence. I have reviewed the chart and discharge instructions (if applicable) and agree that the record reflects my personal performance and is accurate and complete. Shaylee Serrano M.D. 02/11/2020. TY TRAPPER documented in this encounter Plan of Treatment Not on filedocumented as of this encounter Visit Diagnoses Diagnosis Keratosis Lichenoid - Primary documented in this encounter Care Teams Hand I Cutter Relationship Specialty Start Date End Date Elsewhere, Pcp PCP - General Family Medicine 10/09/17 documented as of this encounter
--- OUTSIDE RECORDS SUMMARY | 2021-11-18 09:31 | XMS_ITS | Encounter Summary ---
:1945 Author Organization [facility] Address [address] [place] [address] Care Team Providers Name Role Phone Elsewhere, Pcp Primary Care Provider Unavailable Reason for Visit Reason Comments Follow-up Outpatient (Routine) - Closed Specialty Diagnoses / Procedures Referred By Contact Refer red To Contact Dermatology Shaylee Serrano M.D . [facility] [address] [place] [address] Referral ID Status Reason Start Date Expiration Date Visits Requ ested Visits Authorized [id number] Closed 01/23/2018 01/23/2019 1 1 Encounter Details Date Type Department Care Team Description 04/16/2018 Office Visit Department of Shaylee Serrano, Cancer Ski n Basal Cell Personal History (Primary Dx); Dermatology in [place] Keratosis Seborrheic [place], [place] [address] [place] [phone] Social History Tobacco Use Types Packs/Day Years Used Date Smoking Tobacco: Passive Smoke Exposure - Never Smoker Smokeless Tobacco: Never Alcohol Habits Answer Date Recorded How often do you have a drink containing 4 or more times a w [place] 12/06/2019 alcohol? How many drinks containing alcohol [...] or relatives? How often do you attend worship or taoism More than 4 time s per year 12/06/2019 services? Do you belong to any clubs or organizations Yes 12/06/2019 such as worship groups, unions, fraternal or athletic groups, or [...] encounter Progress Notes Shaylee Serrano M.D. - 04/16/2018 11:00 AM CST CHIEF COMPLAINT/REASON FOR VISIT Recheck curettage and cryotherapy sites HISTORY OF PRESENT ILLNESS Mr. Remi Aguirre is a 72 y.o. male who presents today for a recheck of two curettage and cryotherapy sites. During our most recent visit on 01/23/18, we treated two superficial basal cell carcinomas involving the right posterior upper arm and right upper paraspinal back with curettage and cryotherapy. The patient has additional history of multiple basal cell carcinomas involving the abdomen andarms in the , as well as nodular basal cell carcinoma involving the right upper forehead statuspost Mohs surgery by Dr. White on 12/26/17. No areas of concern today. No Known Allergies PAST MEDICAL HISTORY 1. Superficial basal cell carcinoma of the right posterior upper arm and right upper paraspinal backstatus post curettage and cryotherapy here on 01/23/18. 2. Nodular basal cell carcinoma of the right upper forehead status post Mohs surgery by Dr. White on12/26/17. 2. Multiple basal cell carcinoma with one on the left abdomen and several on??his arms in the . FAMILY HISTORY No family history for melanoma. PHYSICAL EXAM General: Awake, alert, in no acute distress, and with appropriate affect. Skin: Examination of the right upper arm reveals a 2 cm x 1.4 cm scar with some telangiectasia and no evidence of recurrence of basal cell carcinoma or infection. Examination of the right upper paraspinal back reveals a 2 cm x 2.1 cm scar with some telangiectasia and no evidence of recurrence of basalcell carcinoma or infection. Examination of the back otherwise reveals brown seborrheic keratoses. IMPRESSION/REPORT/PLAN #1 Right posterior upper arm??and right upper paraspinal back: History of superficial basal cell carcinomas x 2 status post curettage and cryotherapy on 01/23/18 No evidence for recurrence of basal cell carcinoma on clinical exam today. Follow-up immediately if any changes or evidence for recurrence. #2 Back: Seborrheic Keratosis The benign nature of the skin lesion(s) was discussed with the patient. No treatment is required. I recommend continued observation. Should symptoms or changes develop related to this condition, I would recommend a return visit for reassessment. PATIENT EDUCATION Ready to learn. No apparent learning barriers were identified. Learning preferences include listening. Explained diagnosis and treatment plan; patient/guardian of patient expressed understanding of thecontent. By signing my name below, I, Katerin Alexandru, attest that this documentation has been prepared under thedirection and in the presence of Shaylee Serrano M.D.. Electronically Signed: armida Pacheco. 04/16/2018. 11:09 AM . I, Shaylee Serrano M.D., personally performed the services described in this documentation. All medical record entries made by the scribe were at my direction and in my presence. I have reviewed the chart and discharge instructions (if applicable) and agree that the record reflects my personal performance and is accurate and complete. Shaylee Serrano M.D. . 04/16/2018. 11:28 AM. OMER ORDER CLERK documented in this encounter Plan of Treatment Not on filedocumented as of this encounter Visit Diagnoses Diagnosis Cancer Skin Basal Cell Personal History - Primary Keratosis Seborrheic documented in this encounter Care Teams Hat Cone Inspector Relationship Specialty Start Date End Date Elsewhere, Pcp PCP - General Family Medicine 10/09/17 documented as of this encounter
--- OUTSIDE RECORDS SUMMARY | 2021-11-18 09:31 | XMS_ITS | Clinical Summary ---
:1945 Author Organization [facility] Address [address] [place] [address] Care Team Providers Name Role Phone Elsewhere, Pcp Primary Care Provider Unavailable Source Comments Patient records contain information from all sites at [facility]. For routine questions regarding patient records, call [phone] during business hours, M-F 8:00 AM - 5:00 PM Central Time. Record requests for emergency care only can be directed to [phone] at any time.[facility] Allergies No known active allergies Medications Medication Sig Dispensed Refills Start Date End Date Status atorvastatin (LIPITOR) Take 20 mg by 0 Active 20 mg tablet mouth daily. carvedilol (COREG) Take by mouth 2 0 10/06/2017 Active 6.25 mg tablet (two) times a day. dofetilide (TIKOSYN) Take by mouth 2 0 10/23/2017 Active 500 mcg capsule (two) times a day. lisinopril Take by mouth 0 09/28/2017 Acti ve (PRINIVIL,ZESTRIL) 10 daily. mg tablet warfarin (COUMADIN) 5 Take 5 mg by mouth 0 Active mg tablet as directed. Take as directed on M, T, W, F, S, Sun. warfarin (COUMADIN) Take 7.5 mg by 0 Active 7.5 mg tablet mouth as directed. Take as directed on Hospital, Clinic, or Other Ordered Dose Route Frequency Start Date End Date Status Facility Administered Medication lidocaine-EPINEPHrine 2 - 50 mL Ifil As needed 12/26/2017 Active 1%-1:200,000 injection 2-50 mL (XYLOCAINE W/EPI) [id number] 2 - 25 mL inj As needed 12/26/2017 Active rine 0.25%-1%-1:200,000 injection 2-25 mL Encounters Date Type Specialty Care Team Description 10/04/2021 Office Visit Dermatology Shaylee Serrano M.D. Tumor Skin Uncertain Behavior (Primary Dx); Keratosis Actin ic; Keratosis Liche noid; Nevi Multiple; Keratosis Sebor rheic from Last 3 Months Family History Medical History Relation Name Comments Basal cell carcinoma Other Son Relation Name Status Comments Other Son Alive Social History Tobacco Use Types Packs/Day Years Used Date Smoking Tobacco: Passive Smoke Exposure - Never Smoker Smokeless Tobacco: Never Alcohol Use Standard Drinks/Week Comments Yes 7 (1 standard drink = 0.6 oz pure alcoho l) Alcohol Habits Answer Date Recorded How often do you have a drink containing 4 or more times a w [place] 12/06/2019 alcohol? How many drinks containing alcohol [...] or relatives? How often do you attend holiness or sabianist More than 4 time s per year 12/06/2019 services? Do you belong to any clubs or organizations Yes 12/06/2019 such as holiness groups, unions, fraternal or athletic groups, or [...] Assigned at Date Recorded Not on file Last Filed Vital Signs Vital Sign Reading Time Taken Comments Blood Pressure 106/65 12/26/2017 9:00 AM CDT Pulse 61 12/26/2017 9:00 AM CDT Temperature - - Respiratory Rate - - Oxygen Saturation - - Inhaled Oxygen Concentration - - Weight - - Height - - Body Mass Index - - Plan of Treatment Health Maintenance Due Date Last Done Comments Hepatitis C Screening 1945 Sodium Level 01/05/2020 01/04/2019 Creatinine Level 02/20/2020 02/19/2019, 01/04/2019, 11/23/2018, Additional history exists Potassium Level 02/20/2020 02/19/2019, 01/04/2019, 11/23/2018, Additional history exists Depression Screening (Annual 03/06/2021 PHQ-2) Fall Risk Screen (Annual) 03/06/2021 Influenza Vaccine (#1) 2022 11/19/2020, 11/08/2020, 11/25/2018, Additional history exists DTaP,Tdap,and Td Vaccines (3 - Td 11/13/2029 11/14/2019, or Tdap) Pneumococcal vaccine (65+ years) Completed 02/04/2016, 04/2012 Zoster Vaccines Completed 11/19/2018, 09/04/2018, 02/21/2008 COVID-19 Vaccine Completed 06/09/2021, 12/29/2020, 05/22/2020, Additional history exists Insurance Payer Benefit Plan Subscriber ID Effective Phone Address Typ e / Group Dates MEDICARE MEDICARE A [id number] 2010-Pres [address] [place] [address] BLUE CROSS BCBS ILIAMNA [id number] 2016-Pres [phone] PO CHRISTIANNE X Cost Share EntrenaYa SHIELD BLUE COST ent [phone] [place] [address] Care Teams Loft Worker Relationship Specialty Start Date End Date Elsewhere, Pcp PCP - General Family Medicine 10/09/17
--- OUTSIDE RECORDS SUMMARY | 2021-11-18 09:31 | XMS_ITS | Encounter Summary ---
:1945 Author Organization [facility] Address [address] [place] [address] Care Team Providers Name Role Phone Elsewhere, Pcp Primary Care Provider Unavailable Encounter Details Date Type Department Care Team Description 04/16/2018 Orders Only Department of Dermatology in Shaylee Baranrd M.D. [facility] [address] [facility] [address] [place], [place] [phone] (Wo rk) Social History Tobacco Use Types Packs/Day Years Used Date Smoking Tobacco: Passive Smoke Exposure - Never Smoker Smokeless Tobacco: Never Alcohol Habits Answer Date Recorded How often do you have a drink containing 4 or more times a w [place] 12/06/2019 alcohol? How many drinks containing alcohol [...] or relatives? How often do you attend amish or denominational More than 4 time s per year 12/06/2019 services? Do you belong to any clubs or organizations Yes 12/06/2019 such as amish groups, unions, fraternal or athletic groups, or [...] on filedocumented in this encounter Care Teams Printed Circuit Board Preassembler Relationship Specialty Start Date End Date Elsewhere, Pcp PCP - General Family Medicine 10/09/17 documented as of this encounter
--- OUTSIDE RECORDS SUMMARY | 2021-11-18 09:31 | XMS_ITS | Encounter Summary ---
:1945 Author Organization [facility] Address [address] [place] [address] Care Team Providers Name Role Phone Elsewhere, Pcp Primary Care Provider Unavailable Encounter Details Date Type Department Care Team Description 01/01/2018 Ancillary Procedure Department of Dermatology Social History Tobacco Use Types Packs/Day Years Used Date Smoking Tobacco: Passive Smoke Exposure - Never Smoker Smokeless Tobacco: Never Alcohol Habits Answer Date Recorded How often do you have a drink containing 4 or more times a w [place] 12/06/2019 alcohol? How many drinks containing alcohol [...] or relatives? How often do you attend religious or methodist More than 4 time s per year 12/06/2019 services? Do you belong to any clubs or organizations Yes 12/06/2019 such as religious groups, unions, fraternal or athletic groups, or [...] Date/Time Associated Comments Diagnosis DERMATOLOGY IMAGE Routine 01/01/2018 4:07 PM Resu lts for this EXAM CDT procedure are i n the results section. documented in this encounter Results DERMATOLOGY IMAGE EXAM (01/01/2018 4:07 PM CDT) Specimen (Source) Anatomical Collection Method Collection Time Re ceived Time Location / / Volume Laterality 01/01/2018 4:05 PM CDT Narrative [facility] - 01/01/2018 4:07 PM CDT This order has been created [...] on filedocumented in this encounter Care Teams Rig Builder Helper Relationship Specialty Start Date End Date Elsewhere, Pcp PCP - General Family Medicine 10/09/17 documented as of this encounter
--- OUTSIDE RECORDS SUMMARY | 2021-11-18 09:31 | XMS_ITS | Encounter Summary ---
:1945 Author Organization [facility] Address [address] [place] [address] Care Team Providers Name Role Phone Elsewhere, [...] containing 4 or more times a w [place] 12/06/2019 alcohol? How many drinks containing alcohol [...] How often do you attend anabaptism or scientology More than 4 time s per year [...] Associated Comments Diagnosis DERMATOLOGY IMAGE Routine 01/01/2018 4:05 PM Resu lts for this EXAM CDT procedure are i n the results section. documented in this encounter Results DERMATOLOGY IMAGE EXAM (01/01/2018 4:05 PM CDT) Specimen (Source) Anatomical Collection Method [...] on filedocumented in this encounter Care Teams Shared Services And Outsourcing Manager Relationship Specialty Start Date End Date Elsewhere, Pcp PCP - General Family Medicine 10/09/17 documented as of this encounter
--- OUTSIDE RECORDS SUMMARY | 2021-11-18 09:31 | XMS_ITS | Encounter Summary ---
:1945 Author Organization [facility] Address [address] [place] [address] Care Team Providers Name Role Phone Elsewhere, Pcp Primary Care Provider Unavailable Reason for Visit Reason Comments Skin Check Outpatient (Routine) - Closed Specialty Diagnoses / Procedures Referred By Contact Refer red To Contact Dermatology Shaylee Serrano M.D . [facility] Region [address] [place], [place] [address] Referral ID Status Reason Start Date Expiration Date Visits Requ ested Visits Authorized [id number] Closed 10/31/2017 10/31/2018 1 1 Encounter Details Date Type Department Care Team Description 01/01/2018 Office Visit Department of Shaylee Serrano Tumor Skin Uncertain Behavior (Primary Dx); Dermatology in [place] Cancer Skin Basal Cell Personal History; [place], [place] [address] [facility] Keratosis Actinic; [address] [place] [address] Keratosis Seborrheic; [place] [address] Xerosis [id number] Social History Tobacco Use Types Packs/Day Years Used Date Smoking Tobacco: Passive Smoke Exposure - Never Smoker Smokeless Tobacco: Never Alcohol Habits Answer Date Recorded How often do you have a drink containing 4 or more times a w [facility] [place] 12/06/2019 alcohol? How many drinks containing alcohol [...] or relatives? How often do you attend synagogue or buddhism More than 4 time s per year 12/06/2019 services? Do you belong to any clubs or organizations Yes 12/06/2019 such as synagogue groups, unions, fraternal or athletic groups, or [...] encounter Progress Notes Shaylee Serrano M.D. - 01/01/2018 3:00 PM CDT CHIEF COMPLAINT Skin cancer screening exam HISTORY OF THE PRESENT ILLNESS Remi Aguirre is a pleasant 72 y.o. 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 The patient has a history of multiple basal cell carcinomas involving the abdomen and arms. 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 White on 12/26/17. He reports the wound has been healing well; however, he did develop mild swelling to mid forehead in between the eyebrows as well as mild bruising to the right periorbital area. He denies a personal and family history ofmelanoma. PAST MEDICAL HISTORY 1. History of nodular basal cell carcinoma involving the right upper forehead status post Mohs by Dr. White on 12/26/17. 2. History of multiple basal cell carcinoma with one on the left abdomen and several on his arms in the 1980s. FAMILY HISTORY No family history of melanoma PHYSICAL EXAM General: Awake, alert, in no acute distress, and with appropriate affect. Skin: I have examined the scalp, face, neck, chest, abdomen, back, bilateral upper extremities, and bilateral lower extremities. Examination of the ears and arms reveals actinic keratoses including theleft ear helix x 3, left extensor arm x 2, and right extensor arm x 4. Examination of the right upper arm reveals a 2 cm x 1.1 cm red, scaly plaque suspicious for basal cell carcinoma. Examination of the left hand reveals a few seborrheic keratoses. Examination of the dorsal feet reveals stucco seborrheic keratosis. Examination of the lower legs reveals xerosis. Examination of the lower legs otherwise reveals seborrheic keratoses. Examination of the chest reveals a few seborrheic keratoses. Examination of the calves reveals xerosis and multiple seborrheic keratoses. Examination of the back reveal large seborrheic keratosis. Examination of the right upper paraspinal back reveals a 1.8 cm x 1.1 cm red scaly plaque, suspicious for a basal cell carcinoma. Examination of the right upper forehead reveals a Mohs surgery wound that is well-healing with no evidence of infection. IMPRESSION AND PLAN #1 Left ear and bilateral arms: Actinic keratosis x 9 CONSENT Discussed the risks, benefits, alternatives, and the necessity of other members of the healthcare team participating in the procedure. All questions answered and consent given. ?? PROCEDURE INFORMATION Given the precancerous nature of this lesion(s), treatment is medically indicated. After discussion of the risks, benefits and alternatives to treatment with cryotherapy, informed consent was obtained.We treated a total of 9 lesion(s) with two 20-second freeze-thaw cycles of liquid nitrogen cryotherapy. The patient tolerated the procedure well. Aftercare instructions were provided in written and verbal form to the patient. Should any of these lesions recur, the patient should return for biopsy or further evaluation. Follow up in 1-2 months for recheck if these do not completely resolve. #2 Right posterior upper arm (right upper arm) and right upper paraspinal back: Rule out basal cell carcinomas x 2 We recommend a shave biopsy of the right posterior upper arm (right upper arm) and right upper paraspinal back to rule out basal cell carcinoma. Photograph taken today with patient's verbal consent. Wewill correspond as to the results and if any further treatment is needed. If dermatopathology reports a basal cell carcinoma involving either site, I will refer the patient to [facility] for Mohs procedure. The patient has previously had Mohs and fully understands the procedural details. PROCEDURAL PAUSE Procedural pause conducted to [...] allergies to local anesthetics. Using 1% lidocaine with epinephrine for local anesthesia, a shave biopsy was obtained from the right posterior upper arm (right upper arm) and right upper paraspinal back. Biopsy submitted to Dermatopathology for H&E. Special stains will be performed as indicated.The bleeding was well controlled with application of aluminum chloride. Dressing was applied, and wound care instructions were explained. Biopsy results and any further recommendations will be communicated to the patient by letter. Patient given pamphlet [id number]. Discussed the risks, benefits, alternatives, and the necessity of other members of the healthcare team participating in the procedure. All questions answered and consent given. #3 Chest, back and legs: Seborrheic Keratosis The benign nature of the skin lesion(s) was discussed with the patient. No treatment is required. I recommend continued observation. Should symptoms or changes develop related to this condition, I would recommend a return visit for reassessment. #4 Lower legs: Xerosis I have recommended an Vaniply or Vanicream moisturizing ointment to involved areas twice daily for three to four weeks. Follow up as needed. #5 Right forehead: History of nodular basal cell carcinoma involving the right upper forehead statuspost Mohs by Dr. White on 12/26/17. The wound is healing well and shows no evidence of infection. Wound care instructions were reemphasized and the patient understands. PATIENT EDUCATION Ready to learn. No apparent learning barriers were identified. Learning preferences include listening. Explained diagnosis and treatment plan; patient/guardian of patient expressed understanding of thecontent. By signing my name below, I, Tacos Hallman, attest that this documentation has been prepared under the direction and in the presence of Shaylee Serrano M.D.. Electronically Signed: armida Cortés. 01/01/2018. 4:59 PM . IShaylee M.D., personally performed the services described in this documentation. All medical record entries made by the scribe were at my direction and in my presence. I have reviewed the chart and discharge instructions (if applicable) and agree that the record reflects my personal performance and is accurate and complete. Shaylee Serrano M.D. . 01/01/2018. 5:11 PM. Shaylee Serrano M.D. 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 I have recommended treatment withcurettage and cryotherapy and discussed this procedure. He does understand that heal up open wound that will need to heal in over the next several weeks. I have scheduled him to follow up with us to have this done on January 23 at 11:45 a.m.. He was very appreciative of the call. 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 documented in this encounter Results Dermatopathology Consult (01/01/2018 4:12 PM CDT) Component Value Ref Test Analysis Performed At [facility] SkillHound Range Method Time Signature Gross A: ??Received in formalin labeled with the patient's name, 01/04/2018 [facility] Description: medical record number, and right posterior upper arm is a 2:13 PM LABORATORIES - 0.9 x 0.5 x 0.1 cm pale olguin-yeager skin shave biopsy. ??Ther e T [facility] is a minute light olguin pigmented lesion with ill-defined CAMPUS borders eccentrically located on the skin surface. ??The specimen is bisected longitudinally and submitted entirely cassette A1. ??Grossed by DELMAR. B: ??Received in formalin labeled with the patient's name, medical record number, and right upper paraspinal back is a 0.8 x 0.5 x 0.1 cm pale olguin-yeager skin shave biopsy. There is a 0.3 x 0.2 cm light olguin pigmented lesion with ill-defined borders diffusely involved on the skin surface. Additionally, eccentrically located on the skin surface and abutting this lesion is a minute brown pigmented lesion with irregular borders. ??The specimen is bisected longitudinally and submitted entirely cassette B1. ??Grossed by AJG. Report Nelson Arshad. 01/04/2018 [facility] electronically Suki Harper 2:13 PM LABORATORIES - signed by [facility] 01/04/2018 [facility] 2:13 PM LABORATORIES - [facility] Interpetation FINAL DIAGNOSIS 01/04/2018 [facility] A. ??DermPath Consult Wet Tissue; Right posterior upper ar m, 2:13 PM LABORATORIES - Skin shave biopsy: ??Superficial basal cell carcinoma, T [facility] closely approximating biopsy edge CAMPUS B. ??DermPath Consult Wet Tissue; Right upper paraspinal back, Skin shave biopsy: ??Superficial basal cell carcinoma, involving biopsy border Specimen Anatomical Collection Method Collection Time Receive d Time (Source) Location / / Volume Laterality Tissue 01/01/2018 4:12 PM 8 CDT 10:31 AM CDT Narrative This result has an attachment that is no t available. Shaylee Serrano M.D. LAB PATH DERM ORDERABLES Performing Organization Address City/State/ZIP Code Phon e Number [facility] LABORATORIES - [address] [place], [place] [address] [facility] documented in this encounter Visit Diagnoses Diagnosis Tumor Skin Uncertain Behavior - Primary Cancer Skin Basal Cell Personal History Keratosis Actinic Keratosis Seborrheic Xerosis documented in this encounter Administered Medications Inactive Administered Medications - up to 3 most recent administrations Medication Order MAR Action Action Date Dose Rate Site lidocaine-EPINEPHrine 1 %-1:100,000 Given 01/01/2018 4:15 PM CDT 1 mL injection 1 mL (XYLOCAINE W/EPI) 1 mL, infiltration, Once, On 01/01/18 at 1615, For 1 dose documented in this encounter Care Teams Strike Plate Attacher Relationship Specialty Start Date End Date Elsewhere, Pcp PCP - General Family Medicine 10/09/17 documented as of this encounter
--- OUTSIDE RECORDS SUMMARY | 2021-11-18 09:31 | XMS_ITS | Encounter Summary ---
:1945 Author Organization [facility] Address [address] [place] [address] Care Team Providers Name Role Phone Elsewhere, Pcp Primary Care Provider Unavailable Reason for Visit Reason Comments Skin Check Appointment Request (Routine) - Closed Specialty Diagnoses / Procedures Referred By Contact Refer red To Contact Dermatology Referral ID Status Reason Start Date Expiration Date Visits Requ ested Visits Authorized [id number] Closed 11/06/2020 11/06/2021 1 1 Encounter Details Date Type Department Care Team Description 01/26/2021 Office Visit Department of Shaylee Serrano, Keratosis Actinic (Primary Dx); [facility] [place], [place] [address] [facility] Keratosis Seborrheic; [address] [place] [address] Cancer Skin Basal [place] [phone] Social History Tobacco Use Types Packs/Day Years Used Date Smoking Tobacco: Passive Smoke Exposure - Never Smoker Smokeless Tobacco: Never Alcohol Use Standard Drinks/Week Comments Yes 7 (1 standard drink = 0.6 oz pure alcoho l) Alcohol Habits Answer Date Recorded How often do you have a drink containing 4 or more times a w [place] 12/06/2019 alcohol? How many drinks containing alcohol [...] or relatives? How often do you attend sikhism or confucianism More than 4 time s per year 12/06/2019 services? Do you belong to any clubs or organizations Yes 12/06/2019 such as sikhism groups, unions, fraternal or athletic groups, or [...] encounter Progress Notes Shaylee Serrano M.D. - 01/26/2021 3:00 PM CST SUBJECTIVE CHIEF COMPLAINT / REASON FOR VISIT Full skin cancer screening HISTORY OF PRESENT ILLNESS Remi Aguirre is a pleasant 75 y.o. male who presents for a full skin cancer screening. The patient was last seen by me in Dermatology clinic on 08/31/20. He has a history of basal cell carcinoma, most recently superficial basal cell carcinoma??x 2 involving??right posterior upper arm and right upper paraspinal back,??status post curettage and cryotherapy here??at [facility]??on 01/23/18. He denies a personal history of melanoma or family history for melanoma. He uses sunscreen. He has concerns about a lesion involving the left restoration. MEDICAL HISTORY 1. Several??basal cell carcinomas involving left abdomen and arms, treated elsewhere in the 2. Nodular basal cell carcinoma??involving??right upper forehead,??status post Mohs surgery??on 12/26/17??by Dr. White??at [facility] 3.??Superficial basal cell carcinoma??x 2 involving??right posterior upper arm and right upper paraspinal back,??status post curettage and cryotherapy here??at [facility]??on 01/23/18 4. Negative for melanoma FAMILY HISTORY Negative for melanoma OBJECTIVE PHYSICAL EXAMINATION General: Awake, alert, in no acute distress, and with appropriate affect. Eyes: No scleral injection or icterus. No eyelid abnormalities. Lymph: No lower extremity edema. Skin: I have examined the scalp, face, neck, chest, abdomen, back, bilateral upper extremities, and bilateral lower extremities. Examination today reveals actinic keratoses, including 2 left ear helix, 2 forehead, 1 left wrist, 2left sauceda, 1 right sauceda, 2 left calf, and 1 right forearm. Examination of the face, trunk and extremities reveals multiple benign-appearing nevi, lentigines and seborrheic keratoses. Examination of the left abdomen, arms, right posterior upper arm, right upper paraspinal back, rightupper forehead reveals no clinical evidence for local recurrence of non melanoma skin cancers. Examination of the left upper forehead reveals a seborrheic keratosis. Examination of the lower legs (bilateral) reveals xerosis. I recommend applying moisturizer as needed. Examination today reveals no suspicious lesions for skin cancer. ASSESSMENT / PLAN #1 Face, left wrist, left sauceda, right sauceda, left calf, and right forearm: Actinic keratosis x 11 Given the precancerous nature of this lesion(s), treatment is medically indicated. After discussion of the risks, benefits and alternatives to treatment with cryotherapy, informed consent was obtained.We treated a total of 11 lesion(s) with two 10-15 second freeze-thaw cycles of liquid nitrogen cryoth erapy. The patient tolerated the procedure well. Aftercare instructions were provided in written andverbal form to the patient. Should any of these lesions recur, the patient should return for biopsy or further evaluation. Follow up in 1-2 months for recheck if these areas do not complete resolve. #2 Face, trunk and extremities: Multiple nevi and lentigines The ABCDE criteria for melanoma was reviewed with the patient. None of the patient's nevi reach the clinical threshold for biopsy. I recommend continued sun protection, self-skin examinations, and observation. Should any of the patient's nevi change in size, color, texture, or shape or develop symptoms such as itching or bleeding, I recommend an immediate return visit for reassessment. #3 Face, trunk and extremities: Seborrheic keratosis The benign nature of the skin lesion(s) was discussed with the patient. No treatment is required. I recommend continued observation. Should this lesion change in size, color, texture, or shape or develop symptoms such as itching or bleeding, I recommend an immediate return visit for reassessment. #4 Left abdomen, arms, right posterior upper arm, right upper paraspinal back, right upper forehead:History of multiple non melanoma skin cancers, no recurrence Examination today reveals no clinical evidence of recurrence of non-melanoma skin cancers. Follow upimmediately if changes are noticed during monthly self examination. Otherwise followup in 6-12 months. PATIENT EDUCATION: Ready to learn. No apparent learning barriers were identified. Learning preferences include listening. Explained diagnosis and treatment plan; patient/guardian of patient expressed understanding of thecontent. By signing my name below, Bartolome, Shelia Fernandez, attest that this documentation has been prepared under the direction and in the presence of Shaylee Serrano M.D. Electronically Signed: armida Stacy. 01/25/2021. 5:16 PM RED HAT LINUX ENGINEER. I, Shaylee Serrano M.D., personally performed the services described in this documentation. All medical record entries made by the scribe were at my direction and in my presence. I have reviewed the chart and discharge instructions (if applicable) and agree that the record reflects my personal performance and is accurate and complete. Shaylee Serrano M.D. HAT LINUX ENGINEER documented in this encounter Plan of Treatment Not on filedocumented as of this encounter Visit Diagnoses Diagnosis Keratosis Actinic - Primary Nevi Multiple Keratosis Seborrheic Cancer Skin Basal Cell Personal History documented in this encounter Care Teams Airport Ramp Attendant Relationship Specialty Start Date End Date Elsewhere, Pcp PCP - General Family Medicine 10/09/17 documented as of this encounter
--- OUTSIDE RECORDS SUMMARY | 2021-11-18 09:31 | XMS_ITS | Encounter Summary ---
:1945 Author Organization [facility] Address [address] [place] [address] Care Team Providers Name Role Phone Elsewhere, Pcp Primary Care Provider Unavailable Encounter Details Date Type Department Care Team Description 11/09/2017 Orders Only Department of Shaylee Serrano, Basal Cell Carcinoma Dermatology in M.D. Skin Other Parts Face [place], [place] [address] [facility] (Primary Dx) [address] [place] [phone] Social History Tobacco Use Types Packs/Day Years Used Date Smoking Tobacco: Passive Smoke Exposure - Never Smoker Smokeless Tobacco: Never Alcohol Habits Answer Date Recorded How often do you have a drink containing 4 or more times a w [place] 12/06/2019 alcohol? How many drinks containing alcohol [...] or relatives? How often do you attend samaritan or confucianism More than 4 time s per year 12/06/2019 services? Do you belong to any clubs or organizations Yes 12/06/2019 such as samaritan groups, unions, fraternal or athletic groups, or [...] Name Type Priority Associated Diagnoses Order S vani [facility] 1-4 sites Dermatology Routine Basal Cell Carcinoma E xpected: 11/09/2017 Skin Other Parts Face (Appro ximate), Expires: 2020 documented as of this encounter Visit Diagnoses Diagnosis Basal Cell Carcinoma Skin Other Parts Fa ce - Primary documented in this encounter Care Teams Toll Collector Supervisor Relationship Specialty Start Date End Date Elsewhere, Pcp PCP - General Family Medicine 10/09/17 documented as of this encounter
--- OUTSIDE RECORDS SUMMARY | 2021-11-18 09:31 | XMS_ITS | Encounter Summary ---
:1945 Author Organization [facility] Address [address] [place] [address] Care Team Providers Name Role Phone Elsewhere, Pcp Primary Care Provider Unavailable Reason for Visit Reason Comments COVID Inquiry Encounter Details Date Type Department Care Team Description 08/05/2019 Clinical Communication Department of Shaylee Serrano COV ID Inquiry Dermatology in [place]ksander [place]ellin M.D. [place], [place] [address] [phone] Social History Tobacco Use Types Packs/Day Years Used Date Smoking Tobacco: Passive Smoke Exposure - Never Smoker Smokeless Tobacco: Never Alcohol Use Standard Drinks/Week Comments Yes 7 (1 standard drink = 0.6 oz pure alcoho l) Alcohol Habits Answer Date Recorded How often do you have a drink containing 4 or more times a w [place] 12/06/2019 alcohol? How many drinks containing alcohol [...] or relatives? How often do you attend faith or moravian More than 4 time s per year 12/06/2019 services? Do you belong to any clubs or organizations Yes 12/06/2019 such as faith groups, unions, fraternal or athletic groups, or [...] on file documented as of this encounter Miscellaneous Notes Telephone Encounter - Nova Hobbs Radha - 08/05/2019 3:26 PM CDT 1. Do you have a pending COVID test because you had symptoms or exposure to someone with COVID or you have tested positive for COVID in the last 30 days? NO 2. In the past 14 days, do you, anyone in the household, or anyone you have had prolonged exposure have any of the following? a. Fever = 38.0 C (100.5 F) lasting 24 hours? NO b. New symptoms (Specifically: headache, cough, shortness of breath, respiratory distress, sore throat, diarrhea, nausea, vomiting, chills and repeated shaking with chills, myalgia's (muscle aches), loss of smell, or change or loss of taste sensation)? NO c. Had close contact with a patient with known or possible COVID-19 in the last 14 days? NO [facility]: [facility] Scheduling Contact Number:[phone] documented in this encounter Plan of Treatment Not on filedocumented as of this encounter Visit Diagnoses Not on filedocumented in this encounter Care Teams Morning Caregiver Relationship Specialty Start Date End Date Elsewhere, Pcp PCP - General Family Medicine 10/09/17 documented as of this encounter
--- OUTSIDE RECORDS SUMMARY | 2021-11-18 09:31 | XMS_ITS | Encounter Summary ---
:1945 Author Organization [facility] Address [address] [place] [address] Care Team Providers Name Role Phone Elsewhere, Pcp Primary Care Provider Unavailable Reason for Visit Appointment Request (Routine) - Closed Specialty Diagnoses / Procedures Referred By Contact Refer red To Contact Family Medicine Referral ID Status Reason Start Date Expiration Date Visits Requ ested Visits Authorized [id number] Closed 12/31/2018 12/31/2019 1 1 Encounter Details Date Type Department Care Team Description 06/05/2019 Virtual Visit Department of Shaylee Serrano Tumor Skin U ncertain Dermatology in Aleksander Medellin M.D. Behavior (Primary Dx) [place], [place] [address] [phone] Social History Tobacco Use Types Packs/Day Years [...] or relatives? How often do you attend voodoo or zoroastrianism More than 4 time s per year 12/06/2019 services? Do you belong to any clubs or organizations Yes 12/06/2019 such as voodoo groups, unions, fraternal or athletic groups, or [...] encounter Progress Notes Shaylee Serrano M.D. - 06/05/2019 11:30 AM CDT SUBJECTIVE CHIEF COMPLAINT/REASON FOR VISIT Skin lesion involving right upper cheek HISTORY OF THE PRESENT ILLNESS Remi Aguirre is a pleasant 73 y.o. male who follows up for a phone visit regarding a skin lesion involving his right upper cheek. He does have a history several basal cell carcinomas in the past but no personal history for melanoma. This skin lesion involving the right upper cheek has been present several months in gets crusted and irritated and bled on 1 occasion but then it resolved and then came back more recently a few weeks ago. He did send a photo in today for review. OBJECTIVE PHYSICAL EXAMINATION Per photo attached Skin: Examination of the photo today reveals a erythematous macule involving the right upper cheek. ASSESSMENT/PLAN #1 Right upper cheek: Rule out actinic keratoses versus superficial BCC versus SCC I discussed with Mr. Aguirre that although this lesion could be a precancerous lesion, it could also represent a superficial BCC or SCC and a biopsy would be warranted. At this time with HUYEN, we unfortunately will need to put it off for the time being. I asked him to call our appointment office at [place] and schedule a tentative appointment for further evaluation and a potential biopsy in approximately 2 to 3 months. He will do so. I also told him to call me back if the lesion worsens over the next month or so. All questions answered. PATIENT EDUCATION: Ready to learn. No apparent learning barriers were identified. Learning preferences include listening. Explained diagnosis and treatment plan; patient/guardian of patient expressed understanding of thecontent. I personally spent a total of 6 minutes in [id number] time performing a review of the record and/or discussion with the patient/caregiver as described above. documented in this encounter Plan of Treatment Scheduled Orders Name Type Priority Associated Diagnoses Order S chedule Dermatology misc minor Dermatology Routine Tumor Skin Uncerta in Expected: procedure Behavior 06/26/2019 (Approximate), Expires: 2022 documented as of this encounter Visit Diagnoses Diagnosis Tumor Skin Uncertain Behavior - Primary documented in this encounter Care Teams Optical Engineering Manager Relationship Specialty Start Date End Date Elsewhere, Pcp PCP - General Family Medicine 10/09/17 documented as of this encounter
--- OUTSIDE RECORDS SUMMARY | 2021-11-18 09:31 | XMS_ITS | Encounter Summary ---
:1945 Author Organization [facility] Address [address] [place] [address] Care Team Providers Name Role Phone Elsewhere, [...] or relatives? How often do you attend congregation or tenriism More than 4 time s per year 12/06/2019 services? Do you belong to any clubs or organizations Yes 12/06/2019 such as congregation groups, unions, fraternal or athletic groups, or [...] on filedocumented in this encounter Care Teams Inspector General Relationship Specialty Start Date End Date Elsewhere, Pcp PCP - General Family Medicine 10/09/17 documented as of this encounter
--- OUTSIDE RECORDS SUMMARY | 2021-11-18 09:31 | XMS_ITS | Encounter Summary ---
:1945 Author Organization [facility] Address [address] [place] [address] Care Team Providers Name Role Phone Elsewhere, Pcp Primary Care Provider Unavailable Reason for Referral Outpatient (Routine) - Closed Specialty Diagnoses / Procedures Referred By Contact Refer red To Contact Dermatology Shaylee Serrano M.D . [facility] [address] [place] [phone] Referral ID Status Reason Start Date Expiration Date Visits Requ ested Visits Authorized [id number] Closed 01/23/2018 01/23/2019 1 1 Encounter Details Date Type Department Care Team Description 01/23/2018 Orders Only Department of Dermatology in Shaylee Barnard M.D. [facility] [address] [place] [phone] (Wo rk) Social History Tobacco Use Types Packs/Day Years Used Date Smoking Tobacco: Passive Smoke Exposure - Never Smoker Smokeless Tobacco: Never Alcohol Habits Answer Date Recorded How often do you have a drink containing 4 or more times a w pala 12/06/2019 alcohol? How many drinks containing alcohol [...] or relatives? How often do you attend yarsani or lutheran More than 4 time s per year 12/06/2019 services? Do you belong to any clubs or organizations Yes 12/06/2019 such as yarsani groups, unions, fraternal or athletic groups, or [...] of this encounter Plan of Treatment Scheduled Referrals Name Type Priority Associated Order Schedule Diagnoses Dermatology office Outpatient Referral Routine Ex pected: visit (clinic) 01/23/2018 (Approximate), Expires: 01/23/2021 documented as of this encounter Visit Diagnoses Not on filedocumented in this encounter Care Teams Laser Beam Machine Operator Relationship Specialty Start Date End Date Elsewhere, Pcp PCP - General Family Medicine 10/09/17 documented as of this encounter
--- OUTSIDE RECORDS SUMMARY | 2021-11-18 09:31 | XMS_ITS | Encounter Summary ---
:1945 Author Organization [facility] Address [address] [place] [address] Care Team Providers Name Role Phone Elsewhere, Pcp Primary Care Provider Unavailable Reason for Visit Reason Comments Skin Check Encounter Details Date Type Department Care Team Description 12/25/2018 Office Visit Department of Shaylee Serrano, Karlie dominguez (Primary Dx); Dermatology in Aleksander Cohn Keratosis Actinic; [place], [place] [address] [facility] Keratosis Seborrheic; [address] [place] [address] Cancer Skin Basal Cell Perso nal History; [place] [address] Xerosis [id number] Social History Tobacco Use Types Packs/Day Years Used Date Smoking Tobacco: Passive Smoke Exposure - Never Smoker Smokeless Tobacco: Never Alcohol Use Standard Drinks/Week Comments Yes 7 (1 standard drink = 0.6 oz pure alcoho l) Alcohol Habits Answer Date Recorded How often do you have a drink containing 4 or more times a w [place] 12/06/2019 alcohol? How many drinks containing alcohol [...] How often do you attend synagogue or quaker More than 4 time s per year [...] encounter Progress Notes Shaylee Serrano M.D. - 12/25/2018 2:30 PM CDT CHIEF COMPLAINT/REASON FOR VISIT Full skin cancer screening HISTORY OF PRESENT ILLNESS Mr. Remi Aguirre is a 73 y.o. male who presents for a full skin cancer screening examination. The patient has a history of multiple non-melanoma skin cancers, most recently being superficial basal cell carcinoma x2 involving the right posterior upper arm and right upper paraspinal back status post curettage and cryotherapy done here on 01/23/18. He denies a personal or family history for melanoma. The patient uses sunscreen. No new or changing lesions are noted today. No Known Allergies PAST MEDICAL HISTORY 1. Superficial basal cell carcinoma x2 involving right posterior upper arm and right upper paraspinal back, status post curettage and cryotherapy here on 01/23/18 2. Nodular basal cell carcinoma involving right upper forehead, status post Mohs surgery on 12/26/17by Dr. White at [facility] 3. Several basal cell carcinomas involving left abdomen and arms, treated elsewhere in the 4. Negative for melanoma FAMILY HISTORY Negative for melanoma PHYSICAL EXAM General: Awake, alert, in no acute distress, and with appropriate affect. Eyes: No scleral injection or icterus. No eyelid abnormalities. Lymph: No lower extremity edema. Skin: I have examined the scalp, face, neck, chest, abdomen, back, bilateral upper extremities, and bilateral lower extremities. Examination of the right posterior upper arm reveals no evidence for recurrence of basal cell carcinoma. Examination of the right upper paraspinal back reveals no evidence for recurrence of basal cell carcinoma. Examination of the right upper forehead reveals no evidence for recurrence of Examination of the face and arms reveals actinic keratoses, including the right pre-auricular area x1, left ear helix x2, left cheek x2 and right arm x1. Examination of the back reveals several seborrheic keratoses. Examination of the face reveals some benign-appearing nevi, lentigines and seborrheic keratoses. Examination of the arms and shoulders reveals some benign-appearing nevi, lentigines and seborrheic keratoses. Examination of the legs reveals xerosis and several seborrheic keratoses. Examination of the anterior trunk reveals a few seborrheic keratoses. No suspicious lesions for skin cancer today. IMPRESSION/REPORT/PLAN #1 Face and right arm: Actinic keratosis x6 CONSENT Discussed the risks, benefits, alternatives, and the necessity of other members of the healthcare team participating in the procedure. All questions answered and consent given. PROCEDURE INFORMATION Given the precancerous nature of this lesion(s), treatment is medically indicated. After discussion of the risks, benefits and alternatives to treatment with cryotherapy, informed consent was obtained.We treated a total of 6 lesion(s) with two 56-13-isxgan freeze-thaw cycles of liquid nitrogen cryothe rapy. [...] recommend an immediate return visit for reassessment. Follow up in 6months or immediately if any new or changing lesions are noted. #3 Face, trunk and extremities: Seborrheic keratosis The benign nature of the skin lesion(s) was discussed with the patient. No treatment is required. I recommend continued observation. Should symptoms or changes develop related to this condition, I would recommend a return visit for reassessment. #4 Lower legs: Xerosis Recommended using a moisturizer twice daily. Follow up as needed. #5 Right upper forehead: History of nodular basal cell carcinoma, status post Mohs surgery on 12/26/[address] White at [facility] No clinical evidence of local recurrence today. Recommended monthly self-skin examinations to evaluate for new, changing, symptomatic, or otherwise worrisome lesions. Signs and symptoms of skin cancer discussed. Photoprotection was recommended. Return to Dermatology in 6 months for a full skin exam or immediately if any new or changing lesions are noted. #5 Right posterior upper arm and right upper paraspinal back: History of superficial basal cell carcinoma x2, status post curettage and cryotherapy done here on 01/23/18 No clinical evidence of local recurrence today. Recommended monthly self-skin examinations to evaluate for new, changing, symptomatic, or otherwise worrisome lesions. Signs and symptoms of skin cancer discussed. Photoprotection was recommended. Return to Dermatology in 6 months for a full skin exam or immediately if any new or changing lesions are noted. PATIENT EDUCATION: Ready to learn. No apparent learning barriers were identified. Learning preferences include listening. Explained diagnosis and treatment plan; patient/guardian of patient expressed understanding of thecontent. By signing my name below, I, Karlos Anna, attest that this documentation has been prepared under thedirection and in the presence of Shaylee Srerano M.D. Electronically Signed: armida Bella. 12/25/2018. 2:46 PM. I, Shaylee Serrano M.D., personally performed the services described in this documentation. All medical record entries made by the scribe were at my direction and in my presence. I have reviewed the chart and discharge instructions (if applicable) and agree that the record reflects my personal performance and is accurate and complete. Shaylee Serrano M.D. . 12/25/2018. 4:06 PM. documented in this encounter Plan of Treatment Not on filedocumented as of this encounter Visit Diagnoses Diagnosis Nevi Multiple - Primary Keratosis Actinic Keratosis Seborrheic Cancer Skin Basal Cell Personal History Xerosis documented in this encounter Care Teams Vehicle Check In Clerk Relationship Specialty Start Date End Date Elsewhere, Pcp PCP - General Family Medicine 10/09/17 documented as of this encounter
--- OUTSIDE RECORDS SUMMARY | 2021-11-18 09:31 | XMS_ITS | Encounter Summary ---
:1945 Author Organization [facility] Address [address] [place] [address] Care Team Providers Name Role Phone Elsewhere, Pcp Primary Care Provider Unavailable Reason for Visit Reason Comments Lesion recheck right upper cheek Encounter Details Date Type Department Care Team Description 08/06/2019 Procedure visit Department of Shaylee Serrano Keratmirela Actinic (Primary Dx); Dermatology in Aleksander Medellin M.D. Tumor Skin Uncertain Behavior [place], [place] [address] [phone] Social History Tobacco Use Types Packs/Day Years Used Date Smoking Tobacco: Passive Smoke Exposure - Never Smoker Smokeless Tobacco: Never Alcohol Use Standard Drinks/Week Comments Yes 7 (1 standard drink = 0.6 oz pure alcoho l) Alcohol Habits Answer Date Recorded How often do you have a drink containing 4 or more times a w false pass 12/06/2019 alcohol? How many drinks containing alcohol [...] or relatives? How often do you attend confucianism or protestant More than 4 time s per year 12/06/2019 services? Do you belong to any clubs or organizations Yes 12/06/2019 such as confucianism groups, unions, fraternal or athletic groups, or [...] encounter Progress Notes Shaylee Serrano M.D. - 08/06/2019 8:00 AM CDT SUBJECTIVE CHIEF COMPLAINT / REASON FOR VISIT Skin lesion involving right upper cheek HISTORY OF PRESENT ILLNESS Mr. Remi Aguirre is a 73 y.o. male who presents today for evaluation of a skin lesion involving his right upper cheek. He 1st noticed this in May 2019 and it got crusty in bled on 1 occasion. He does have a history of multiple basal cell carcinomas in the past but denies any personal or familyhistory for melanoma. He does use sunscreen. No Known Allergies MEDICAL HISTORY 1. Superficial basal cell carcinoma x2 involving right posterior upper arm and right upper paraspinal back, status post curettage and cryotherapy here on 01/23/18 2. Nodular basal cell carcinoma involving right upper forehead, status post Mohs surgery on 12/26/17by Dr. White at [facility] 3. Several basal cell carcinomas involving left abdomen and arms, treated elsewhere in the 4. Negative for melanoma1. Superficial basal cell carcinoma x2 involving right posterior upper arm and right upper paraspinal back, status post curettage and cryotherapy here on 01/23/18 2. Nodular basal cell carcinoma involving right upper forehead, status post Mohs surgery on 12/26/17by Dr. White at [facility] 3. Several basal cell carcinomas involving left abdomen and arms, treated elsewhere in the 4. Negative for melanoma FAMILY HISTORY No family history for melanoma OBJECTIVE PHYSICAL EXAMINATION General: Awake, alert, in no acute distress, and with appropriate affect. Skin: Examination of his face, ears, distal arms and hands done in clinic today. Examination of his right upper cheek reveals a rough reddish brown scaly macule compatible with a pigmented actinic keratosis. He also has 2 AKS involving his right judaism, 6 involving his forehead, 4 involving his left ear helix, 5 involving his right arm and 6 involving his left arm for a total of 24 actinic keratoses.No recurrence of basal cell carcinoma on face. ASSESSMENT / PLAN #1 Multiple actinic keratosis CONSENT Discussed the risks, benefits, alternatives, and the necessity of other members of the healthcare team participating in the procedure. All questions answered and consent given. PROCEDURE INFORMATION Given the precancerous nature of this lesion(s), treatment is medically indicated. After discussion of the risks, benefits and alternatives to treatment with cryotherapy, informed consent was obtained.We treated a total of 24 lesion(s) with two 10-second freeze-thaw cycles of liquid nitrogen cryotherapy. The patient tolerated the procedure well. Aftercare instructions were provided in written and verbal form to the patient. Should any of these lesions recur, the patient should return for biopsy or further evaluation. Follow-up in 1 month if these do not resolve. Otherwise follow up in the fall fora skin cancer screening exam. PATIENT EDUCATION: Ready to learn. No apparent learning barriers were identified. Learning preferences include listening. Explained diagnosis and treatment plan; patient/guardian of patient expressed understanding of thecontent. documented in this encounter Plan of Treatment Not on filedocumented as of this encounter Visit Diagnoses Diagnosis Keratosis Actinic - Primary Tumor Skin Uncertain Behavior documented in this encounter Care Teams Health Services Information Specialist Relationship Specialty Start Date End Date Elsewhere, Pcp PCP - General Family Medicine 10/09/17 documented as of this encounter
--- OUTSIDE RECORDS SUMMARY | 2021-11-18 09:31 | XMS_ITS | Encounter Summary ---
:1945 Author Organization [facility] Address [address] [place] [address] Care Team Providers Name Role Phone Elsewhere, Pcp Primary Care Provider Unavailable Reason for Referral Outpatient (Routine) - Authorized Specialty Diagnoses / Procedures Referred By Contact Refer red To Contact Dermatology Diagnoses Tumor Skin Uncertain Behavior Shaylee Serrano M.D. [facility] Procedures Dermatology misc minor procedure [address] [place] [address] Referral ID Status Reason Start Date Expiration Date Visits V isits Requested Authorized [id number] Authorized 10/04/2021 10/04/2022 1 1 Reason for Visit Reason Comments Skin Check Appointment Request (Routine) - Closed Specialty Diagnoses / Procedures Referred By Contact Refer red To Contact Dermatology Referral ID Status Reason Start Date Expiration Date Visits Requ ested Visits Authorized [id number] Closed 07/05/2021 07/05/2022 1 1 Encounter Details Date Type Department Care Team Description 10/04/2021 Office Visit Department of Shaylee Serrano, Tumor Skin Uncertain Behavior (Primary Dx); Dermatology in [facility]; [place], [place] [address] [facility] Keratosis Lichenoid; [address] [place] [address] Nev[facility] Multiple; [place] [address] Keratosis Seborrheic [id number] Social History Tobacco Use Types Packs/Day Years Used Date Smoking Tobacco: Passive Smoke Exposure - Never Smoker Smokeless Tobacco: Never Alcohol Use Standard Drinks/Week Comments Yes 7 (1 standard drink = 0.6 oz pure alcoho l) Alcohol Habits Answer Date Recorded How often do you have a drink containing 4 or more times a w cheesh-na 12/06/2019 alcohol? How many drinks containing alcohol [...] or relatives? How often do you attend gnosticism or judaism More than 4 time s per year 12/06/2019 services? Do you belong to any clubs or organizations Yes 12/06/2019 such as gnosticism groups, unions, fraternal or athletic groups, or [...] encounter Progress Notes Shaylee Serrano M.D. - 10/04/2021 4:00 PM CDT SUBJECTIVE CHIEF COMPLAINT / REASON FOR VISIT Full skin cancer screening HISTORY OF PRESENT ILLNESS Remi Aguirre is a pleasant 76 y.o. male who presents for a full skin cancer screening. The patient was last seen by me in Dermatology clinic on 01/26/21. He has a history of basal cell carcinoma,most recently superficial basal cell carcinoma x 2 involving right posterior upper arm and right upper paraspinal back, status post curettage and cryotherapy on 01/23/[address] Serrano at [facility]. He denies a personal history of melanoma or family history for melanoma. He uses sunscreen. He denies any new or changing lesions today. MEDICAL HISTORY 1. Left abdomen and arms: History of several basal cell carcinomas, treated elsewhere in the 2. Right upper forehead: History of nodular basal cell carcinoma, status post Mohs surgery on 12/26/[address] White at [facility] 3. Right posterior upper arm and right upper paraspinal back: History of superficial basal cell carcinoma x 2, status post curettage and cryotherapy on 01/23/[address] Serrano at [facility] 4. Negative for melanoma FAMILY HISTORY Negative for melanoma OBJECTIVE PHYSICAL EXAMINATION General: Awake, alert, in no acute distress, and with appropriate affect. Eyes: No scleral injection or icterus. No eyelid abnormalities. Lymph: No lower extremity edema. Skin: I have examined the scalp, face, neck, chest, abdomen, back, bilateral upper extremities, and bilateral lower extremities. Examination of the left abdomen and arms, right upper forehead, right posterior upper arm and right upper paraspinal back reveals no evidence for recurrence of basal cell carcinomas. Examination today reveals actinic keratoses, including 1 left upper forehead, 1 left lateral forehead, 1 left lower medial cheek ,1 left lower jawline, 1 right lateral cheek, 2 right forearm, and 2 left forearm. Examination of the face, trunk and extremities reveals multiple benign-appearing nevi, lentigines and seborrheic keratoses. Examination of the lower legs and feet reveals several stucco keratoses. Examination of the right mid calf reveals a probable lichenoid keratosis. Examination of the right lower calf a few cm above the heel reveals a small irritated hair follicle. Examination today reveals no suspicious lesions for skin cancer. ASSESSMENT / PLAN #1 Face, right forearm and left forearm: Actinic keratosis x 9 Given the precancerous nature of this lesion(s), treatment is medically indicated. After discussion of the risks, benefits and alternatives to treatment with cryotherapy, informed consent was obtained.We treated a total of nine lesion(s) with two 10-second freeze-thaw cycles of liquid nitrogen cryotherapy. The patient tolerated the procedure well. Aftercare instructions were provided in written and verbal form to the patient. Should any of these lesions recur, the patient should return for biopsy or further evaluation. Follow up in 1-2 months for recheck if these areas do not complete resolve. #2 Right mid calf: Probable lichenoid keratosis x 1 CONSENT Discussed the risks, benefits, alternatives, and the necessity of other members of the healthcare team participating in the procedure. All questions answered and consent given. PROCEDURE INFORMATION After discussion of the risks, benefits and alternatives to treatment with cryotherapy, informed consent was obtained. We treated a total of right mid calf lesion(s) with two 15-second freeze-thaw cycles of liquid nitrogen cryotherapy. The patient tolerated the procedure well. Aftercare instructions were provided in written and verbal form to the patient. Should any of these lesions recur, the patient should return for biopsy or further evaluation. Follow up in 1-2 months for recheck if these areas do not complete resolve. #3 Right lower calf: Probable irritated hair follicle I discussed with the patient that this lesion likely represents an irritated hair follicle. I recommend he apply Vaseline twice daily. Follow up on 10/26/21 for a recheck and potential biopsy of the stated lesion(s) if not resolved #4 Face, trunk and extremities: Multiple nevi and [...] an immediate return visit for reassessment. #5 Face, trunk and extremities: Seborrheic keratosis The benign nature of the skin lesion(s) was discussed with the patient. No treatment is required. I recommend continued observation. Should this lesion change in size, color, texture, or shape or develop symptoms such as itching or bleeding, I recommend an immediate return visit for reassessment. #6 Left abdomen and arms: History of several basal cell carcinomas, treated elsewhere in the , no recurrence No clinical evidence of local recurrence today. Recommended monthly self-skin examinations to evaluate for new, changing, symptomatic, or otherwise worrisome lesions. Signs and symptoms of skin cancer discussed. Photoprotection was recommended. Return to Dermatology in 6-12 months for a full skin examor immediately if any new or changing lesions are noted. #7 Right upper forehead: History of nodular basal cell carcinoma, status post Mohs surgery on 12/26/[address] White at [facility], no recurrence No clinical evidence of local recurrence today. Recommended monthly self-skin examinations to evaluate for new, changing, symptomatic, or otherwise worrisome lesions. Signs and symptoms of skin cancer discussed. Photoprotection was recommended. Return to Dermatology in 6-12 months for a full skin examor immediately if any new or changing lesions are noted. #8 Right posterior upper arm and right upper paraspinal back: History of superficial basal cell carcinoma x 2, status post curettage and cryotherapy on 01/23/[address] Serrano at [facility], no recurrence No clinical evidence of local recurrence today. Recommended monthly self-skin examinations to evaluate for new, changing, symptomatic, or otherwise worrisome lesions. Signs and symptoms of skin cancer discussed. Photoprotection was recommended. Return to Dermatology in 6-12 months for a full skin examor immediately if any new or changing lesions are noted. PATIENT EDUCATION: Ready to learn. No apparent learning barriers were identified. Learning preferences include listening. Explained diagnosis and treatment plan; patient/guardian of patient expressed understanding of thecontent. By signing my name below, I, Shelia Fernandez, attest that this documentation has been prepared under the direction and in the presence of Shaylee Serrano M.D. Electronically Signed: armida Stacy. 09/28/2021. 12:10 PM CDT. I, Shaylee Serrano M.D., personally performed the [...] Tumor Skin Uncerta in Expected: procedure Behavior 10/26/2021, Expires: 2022 documented as of this encounter Visit Diagnoses Diagnosis Tumor Skin Uncertain Behavior - Primary Keratosis [facility]inic Keratosis Lichenoid [facility] Keratosis Seborrheic documented in this encounter Care Teams Dispatcher Automobile Rental Relationship Specialty Start Date End Date Elsewhere, Pcp PCP - General Family Medicine 10/09/17 documented as of this encounter
[2021-11-18 10:16] LABS: Cholesterol* 136 mg/dL (90-199); HDL Cholesterol* 42 mg/dL (>=40); LDL Cholesterol Calculated 75 mg/dL (<100); Triglycerides* 94 mg/dL (40-149)
[2021-11-18 10:47] LABS: PSA Screen* 0.71 ng/mL (0.10-4.00)
== END 2021-11-18 16:47 | disposition home or self-care (01) ==
PROVIDERS: PCP Internal Medicine; Visit Provider Internal Medicine
DX: Z00.00 Encounter for general adult medical examination without abnormal findings (principal); E78.5 Hyperlipidemia, unspecified; I48.91 Unspecified atrial fibrillation; Z12.5 Encounter for screening for malignant neoplasm of prostate
CPT/HCPCS: 80061; 84153

== ENCOUNTER 2022-01-05 11:25 | Outpatient (REF) | payer MEDICARE, BC, SELFPAY ==
[2022-01-05 11:45] LABS: Chloride* 102 mmol/L (96-114); Potassium* 4.8 mmol/L (3.6-5.1); Sodium* 137 mmol/L (135-149)
--- OUTSIDE RECORDS SUMMARY | 2022-01-05 11:45 | XMS_ITS | Clinical Summary ---
:1945 Author Organization [facility] [place] [address] Care Team Providers Name Role Phone Lit Moody MD Primary Care Provider Allergies No known active allergies Medications Medication Sig Dispensed Refills Start Date End Date Status atorvastatin (LIPITOR) Take 20 mg by 0 Active 20 mg tablet mouth once daily. warfarin (COUMADIN) 5 5 mg other days 0 10/16/2019 Active mg tablet and 7.5 mg Thurs losartan (COZAAR) 50 mg Take 1 Tablet 90 Tablet 3 12/03/2021 Active tabletIndications: PAF (50 mg) by mouth (paroxysmal atrial once daily. fibrillation) (HC) carvediloL (COREG) 6.25 Take 1 Tablet 180 Tablet 3 12/03/2021 Active mg tabletIndications: (6.25 mg) by Paroxysmal atrial mouth two times fibrillation (HC) daily. Active Problems Patient Care Coordination Note Formatting of this note might be differe nt from the original. HF/Structural/Prevention Research Jose Luis banegas Review Date: 04/16/19 Upcoming Visit Location: [facility] Age: 73 y.o. Research Purpose Insurance Type: Medicar e/Medicaid EF: 60-65 Valve/Imaging: HF: DNQ Structural: [place]: no d/t mod MR Prevention: DNQ Problem Noted Date Cardiomyopathy 10/24/2016 Overview: Presumed rate related Persistent atrial fibrillation 08/12/2016 Encounters Date Type Specialty Care Team Description 12/03/2021 Office Visit Jatin Gutierrez, [facility] er (Office visit- Annual MD F/U /DX: /PAF, ??Other cardiomyopathie s, /Paroxysmal atr ial fibrillation//P CHENG- Lit Moody MD) 12/03/2021 Travel 10/16/2021 Refill Jatin Gutierrez, Ref ill Request (Carvedilol) from Last 3 Months Social [...] Sign Reading Time Taken Comments Blood Pressure 157/77 12/03/2021 4:09 PM CDT Pulse 64 12/03/2021 4:09 PM CDT Temperature 36.8 ??C (98.2 ??F) 01/05/2019 8:51 AM CDT Respiratory Rate 18 01/05/2019 8:51 AM CDT Oxygen Saturation 99% 12/03/2021 4:09 PM CDT Inhaled Oxygen Concentration - - Weight 92.1 kg (203 lb) 10/14/2020 10:39 AM CDT Height 182.9 cm (6') 10/14/2020 10:39 AM CDT Body Mass Index 27.53 10/14/2020 10:39 AM CDT Plan of Treatment Health Maintenance Due Date Last Done Comments Tdap 1956 Depression screening for age 12+ 1957 Hepatitis C screening for age 0709/04/1963 18-79 Tetanus booster 1965 Zoster (shingles) series for age 0709/04/1995 50+ (1 of 2) Medicare Wellness for age 65+ 2010 Pneumococcal series for age 65+ (1 2010 - PCV) BMI (ht and wt on same day) for 10/14/2021 10/14/2020, 10/04, age 18+ 04/18/2019, Additional history exists Influenza for age 65+ 11/04/2021 COVID-19 vaccine series Completed 11/15/2021, 06/09/2021, 12/29/2020, Additional history exists Procedures Procedure Name Priority Date/Time Associated Diagnosis Comme nts EKG 12 LEAD Routine 12/03/2021 3:21 PM PAF (paroxysmal Result s for this CDT atrial fibrillation) procedu re are in the (HC) results section . from Last 3 Months Results EKG 12 LEAD (12/03/2021 3:21 PM CDT) Component Value Ref Range Test Analysis Performed Pathologis t Method Time At Signature Interpretation Normal sinus rhythm Nonspecific ST and T wave abnormality Abnormal ECG Ventricular Rate 63 BPM Atrial Rate 63 BPM P-R Interval 146 ms QRS Duration 86 ms QT 418 ms QTc 427 ms P Gustine 96 degrees R Gustine 43 degrees T Gustine 89 degrees Specimen Anatomical Collection Method Collection Time Receive d Time (Source) Location / / Volume Laterality 12/03/2021 3:21 PM 9:48 CDT PM CDT Jatin Gutierrez MD EKG ORD from Last 3 Months Insurance Payer Benefit Plan / Subscriber ID Effective Dates Phone Addre ss Type Group MEDICARE PART A MEDICARE PART A [id number] 2010-Presen ATTN: CLAIMS - HB USE ONLY HB ONLY [place] [address] [place] [address] MEDICARE PART B MEDICARE PART B [id number] 2010-Presen ATTN: CLAIMS - HB USE ONLY HB ONLY t [address] [place] [address] [place]UE [place]OSS [place] BL[place]OSS [id number] 2016-Presen [address] [address] [place], [place] [id number] BLUE [place]OSS [place] [id number] 2016-[place] [address] [address] [place] [place] [address] [facility] [place] [id number] Advance Directives Latest Code Status on File Code Status Date Activated Date Inactivated Comments Full Code 01/04/2019 10:03 AM 01/05/2019 12:32 PM Full Code 08/20/2018 2:05 PM 08/20/2018 5:22 PM Full Code 12/02/2016 6:47 AM 12/02/2016 7:44 PM Full Code 10/25/2016 9:00 AM 10/27/2016 2:46 PM Full Code 10/24/2016 12:54 PM 10/25/2016 9:00 AM Care Teams Production Hand Relationship Specialty Start Date End Date Lit Moody MD PCP - General Internal Medicine 08/12/[address] [place] [id number]
--- OUTSIDE RECORDS SUMMARY | 2022-01-05 11:45 | XMS_ITS | Encounter Summary ---
:1945 Author Organization [facility] Address [address] [place] [address] Care Team Providers Name Role Phone Elsewhere, Pcp Primary Care Provider Unavailable Reason for Referral Outpatient (Routine) - Authorized Specialty Diagnoses / Procedures Referred By Contact Refer red To Contact Dermatology Diagnoses Tumor Skin Uncertain Behavior Shaylee Serrano M.D. [facility] Procedures Dermatology misc minor procedure [address] [place], [place] [address] Referral ID Status Reason Start Date Expiration Date Visits V isits Requested Authorized [id number] Authorized 10/04/2021 10/04/2022 1 1 Reason for Visit Reason Comments Skin Check Appointment Request (Routine) - Closed Specialty Diagnoses / Procedures Referred By Contact Refer red To Contact Dermatology Referral ID Status Reason Start Date Expiration Date Visits Requ ested Visits Authorized [id number] Closed 07/05/2021 07/05/2022 1 1 Encounter Details Date Type Department Care Team Description 10/04/2021 Office Visit Department of Shaylee Serrano, Tumor Skin Uncertain Behavior (Primary Dx); Dermatology in [facility]; [place], [place] [address] [facility] Keratosis Lichenoid; [address] [place] [address] [facility]; [place] [address] Keratosis Seborrheic [id number] Social History Tobacco Use Types Packs/Day Years Used Date Smoking Tobacco: Passive Smoke Exposure - Never Smoker Smokeless Tobacco: Never Alcohol Use Standard Drinks/Week Comments Yes 7 (1 standard drink = 0.6 oz pure alcoho l) Alcohol Habits Answer Date Recorded How often do you have a drink containing 4 or more times a w [place] 12/06/2019 alcohol? How many drinks containing alcohol do you have 1 or 2 12/06/2019 on a typical day when you are drinking? How often do you have six or more drinks on one Never 12/06/2019 occasion? Social Isolation Answer Date Recorded In a typical week, how many times do you Twice a week 12/06/2019 talk on the phone with family, friends, or neighbors? How often do you get together with friends Twice a week 12/06/2019 or relatives? How often do you attend congregational or religion More than 4 time s per year 12/06/2019 services? Do you belong to any clubs or organizations Yes 12/06/2019 such as congregational groups, unions, fraternal or athletic groups, or [...] cryotherapy on 01/23/[address] Serrano at [facility]. He denies a personal history of melanoma or family history for melanoma. He uses sunscreen. He denies any new or changing lesions today. MEDICAL HISTORY 1. Left abdomen and arms: History of several basal cell carcinomas, treated elsewhere in the 2. Right upper forehead: History of nodular basal cell carcinoma, status post Mohs surgery on 12/26/[address] White at [facility] 3. Right posterior upper arm and right upper paraspinal back: History of superficial basal cell carcinoma x 2, status post curettage and cryotherapy on 01/23/[address] Serrano at [facility] 4. Negative for melanoma FAMILY HISTORY Negative [...] surgery on 12/26/[address] White at [facility], no recurrence No clinical evidence of local [...] cryotherapy on 01/23/[address] Serrano at [facility], no recurrence No clinical evidence of local [...] Seborrheic documented in this encounter Care Teams Electronics Scale Tester Relationship Specialty Start Date End Date Elsewhere, Pcp PCP - General Family Medicine 10/09/17 documented as of this encounter
--- OUTSIDE RECORDS SUMMARY | 2022-01-05 11:45 | XMS_ITS | Clinical Summary ---
:1945 Author Organization [facility] Address [address] [place] [address] Care Team Providers Name Role Phone Elsewhere, Pcp Primary Care Provider Unavailable Source Comments Patient records contain information from all sites at [facility]. For routine questions regarding patient records, call [phone] during business hours, M-F 8:00 AM - 5:00 PM Central Time. Record requests for emergency care only can be directed to [phone] at any time.[facility] Allergies No known active allergies Medications Medication [...] Active 1%-1:200,000 injection 2-50 mL (XYLOCAINE W/EPI) [id number] 2 - 25 mL inj As needed 12/26/2017 Active rine 0.25%-1%-1:200,000 injection 2-25 mL Family History Medical History Relation Name Comments [...] containing 4 or more times a w [place] 12/06/2019 alcohol? How many drinks containing alcohol [...] How often do you attend confucianism or church More than 4 time s [...] 03/06/2021 PHQ-2) Fall Risk Screen (Annual) 03/06/2021 DTaP,Tdap,and Td Vaccines (3 - Td 11/13/2029 11/14/2019, or Tdap) Pneumococcal vaccine (65+ years) Completed 02/04/2016, 04/2012 Zoster Vaccines Completed 11/19/2018, 09/04/2018, 02/21/2008 COVID-19 Vaccine Completed 11/15/2021, 06/09/2021, 12/29/2020, Additional history exists Influenza Vaccine Completed 11/15/2021, 11/19/2020, 11/08/2020, Additional history exists Insurance Payer Benefit Plan Subscriber ID Effective Phone Address Typ e / Group Dates MEDICARE MEDICARE A [id number] 2010-Pres [address] [place] [address] BLUE CROSS BC[employer] [place] [id number] 2016-Pres [phone] PO [address] X Cost Share BLUE [place] [phone] [place] [address] Care Teams Babcock Tester Relationship Specialty Start Date End Date Elsewhere, Pcp PCP - General Family Medicine 10/09/17
[2022-01-05 11:48] LABS: Blood Urea Nitrogen* 24 mg/dL (7-30); Carbon Dioxide* 29 mmol/L (20-32); Estimated Glomerular Filt Rate 78 ml/min; Glucose* 75 mg/dL (60-115)
[2022-01-05 11:49] LABS: Calcium* 9.3 mg/dL (8.4-10.6)
== END 2022-01-05 11:26 | disposition home or self-care (01) ==
LOC: NPINS 11:25
PROVIDERS: PCP Internal Medicine
DX: Z79.899 Other long term (current) drug therapy (principal)
CPT/HCPCS: 80048

== ENCOUNTER 2022-09-28 12:43 | Outpatient (CLI) | payer MEDICARE, BC, SELFPAY ==
[2022-09-28 12:58] VITALS: BP 126/74; PULSE 64; RESP 16; O2SAT 98
[2022-09-28] MEDS: TETRACAINE 0.5% OPHTH 1 DROP EYE-RIGHT ×3 (12:59→13:23)
[2022-09-28] MEDS: BRIMONIDINE TARTRATE 0.2% OPHTH 1 DROP EYE-RIGHT ×2 (13:01→13:41)
--- NOTE | 2022-09-28 13:48 | W.PM.OPTPROC ---
Procedure Note Date of procedure: 09/28/22 [address] [facility] bill your pro fee for this procedure?: Yes Procedure Description: SURGEON: Mariela Benedict MD PREOPERATIVE DIAGNOSIS: Posterior capsular opacity, right eye POSTOPERATIVE DIAGNOSIS: Posterior capsular opacity, right eye PROCEDURE: YAG laser capsulotomy, right eye ANESTHESIA: Topical. ESTIMATED BLOOD LOSS: None PATHOLOGY SPECIMEN: None COMPLICATIONS: None INDICATIONS: See consult note for details. The risks, benefits and alternatives of the procedure were explained to the patient, who elected to proceed and signed informed consent to do so. PROCEDURE: The patient was brought to the pre-holding area where the right eye was identified as the operative eye. I placed my initials above this eye. The patient received 2 sets of 1 drop of 0.5% tetracaine and 1 drop of 1% tropicamide. They also received 1 drop of 0.2% brimonidine. They received 1 drop of 0.5% tetracaine immediately prior to bringing them back for the procedure. The patient was then brought to the procedure room where the right eye was again identified as the operative eye. A YAG Nabeel capsulotomy lens was placed on the eye. The laser was administered using a total number of 23 shots with an energy of 2.4 mJ per shot for a total energy of 55 mJ. The patient tolerated the procedure well. DISPOSITION: The patient was taken back to the pre-holding area and given 1 drop of 0.2% brimonidine in the right eye. They were discharged to home in stable condition. The patient was instructed to call me or go to the emergency department with any sudden change, including dramatic loss of vision, severe pain in the eye or eyebrow region, nausea, or vomiting. The patient was instructed to use the 0.2% brimonidine 1 drop 2 times a day in the right eye for 1 week. The patient will follow up in the clinic in 1-2 weeks.
== END 2022-09-28 13:42 | disposition home or self-care (01) ==
LOC: EYE PRC 12:44
PROVIDERS: PCP Internal Medicine; Visit Provider Ophthalmology
DX: H26.9 Unspecified cataract (principal)
CPT/HCPCS: 66821; A9270

== ENCOUNTER 2022-12-01 09:28 | Outpatient (CLI) | payer MEDICARE, BC, SELFPAY | END 2022-12-01 09:29 | disposition home or self-care (01) | LOC: NFLDREF 09:29 | PROVIDERS: PCP Internal Medicine; Visit Provider Internal Medicine | DX: Z00.00 Encounter for general adult medical examination without abnormal findings (principal); E78.5 Hyperlipidemia, unspecified; I48.91 Unspecified atrial fibrillation; Z51.81 Encounter for therapeutic drug level monitoring; Z79.01 Long term (current) use of anticoagulants; Z12.5 Encounter for screening for malignant neoplasm of prostate | CPT/HCPCS: 80053; 80061; 84153; 85610 ==

== ENCOUNTER 2022-12-19 12:56 | Outpatient (CLI) | payer MEDICARE, BC, SELFPAY ==
--- NOTE | 2022-12-19 13:00 | CRLHL7_ITS ---
For Patients: As a result of the 21st Century Cures Act, medical imaging exams and procedure reports are released immediately into your electronic medical record. You may view this report before your referring provider. If you have questions, please contact your health care provider. EXAM: MRI OF THE RIGHT SHOULDER, WITHOUT CONTRAST CLINICAL INDICATION: Shoulder injury. COMPARISON IMAGING STUDIES: None available at time of interpretation. TECHNICAL: Multiplanar multisequence MRI of the right shoulder without contrast. FINDINGS: ROTATOR CUFF TENDONS AND MUSCLES: Redundancy of the sub scapularis tendon likely due to internal rotation. No discrete rotator cuff tear is seen given limitations of internal rotation. Normal rotator cuff muscle signal and bulk. - ACROMIOCLAVICULAR JOINT AND CORACOACROMIAL ARCH: The is edema centered the acromion and distal clavicle with small acromioclavicular joint effusion and subchondral cystic change. Trees surrounding soft tissue is seen. There is capsular thickening without definite capsular disruption. No elevation the distal clavicle in relation to the acromion. The coracoclavicular ligaments are intact. Type 2 acromial morphology. No abnormal lateral or anterior downward sloping of the acromion. No os acromiale. No significant subacromial spur. At its narrowest, the acromiohumeral interval measures 18 mm. No abnormal thickening of the coracoacromial ligament. At its narrowest, the coracohumeral interval measures 12 mm. No subacromial -subdeltoid or subcoracoid bursitis. - BICEPS - LABRAL COMPLEX: The long head of the biceps tendon is appropriately positioned within the bicipital groove without tendon subluxation or dislocation. The biceps estephanie mechanism is intact. The biceps anchor appears grossly intact. There is no significant tendinosis or tendon tearing. Fluid surrounds the long head biceps tendon within the bicipital groove. Increased intrasubstance signal within the superior labrum at approximately 12 o`clock (series 5, image 13) concerning for labral tear. - GLENOHUMERAL JOINT: Physiologic quantity of joint fluid. No paralabral or periarticular cyst or ganglion. Humeral head and glenoid articular surfaces are smooth without focal cartilage defect. No intraarticular joint body. No glenohumeral joint capsular edema or abnormal capsular thickening. - OSSEOUS STRUCTURES: No fracture, marrow edema or marrow replacement process. - SOFT TISSUES: There is no abnormality within the suprascapular or spinoglenoid notches nor within the quadrilateral space. No axillary adenopathy or mass. IMPRESSION: 1. Osseous edema centered at the acromioclavicular joint with associated capsular thickening and joint effusion concerning for capsular sprain. No elevation of the distal clavicle or discrete fracture. 2. Intact rotator cuff. 3. Probable superior labral tear. Dictated by Nell Abbott MD @ 12/20/2022 10:05:13 AM (Electronically Signed)
== END 2022-12-19 12:57 | disposition home or self-care (01) ==
LOC: MRI 12:56
PROVIDERS: PCP Internal Medicine; Visit Provider Internal Medicine
DX: S49.91XA Unspecified injury of right shoulder and upper arm, initial encounter (principal); S43.491A Other sprain of right shoulder joint, initial encounter
CPT/HCPCS: 73221

== ENCOUNTER 2023-06-08 14:30 | Outpatient (RCR) | payer MEDICARE, BC, SELFPAY ==
--- NOTE | 2023-01-17 07:40 | PT.OPEX ---
PT [facility] Out[facility] Eval PT [facility] Outpatient Eval Start: 01/16/23 08:27 Freq: Status: Active Protocol: Document 01/16/23 08:33 AMS (Rec: 01/16/23 16:54 AMS [id number]) E-signed By Taniya Walter PT Physical Therapy Outpatient Evaluation Insurance Information Recert Due Date 04/11/23 Insurance Name Medicare B,Blue Cross/Blue Shield Medical Diagnosis Right AC joint arthritis Possible rotator cuff tendinitis Treating Diagnosis Right shoulder pain Muscle weakness Referring MD Rhonda Young Remi returns today with a new problem of right shoulder pain. Referred to me by Dr. Moody. He states he has been having intermittent pain for the last few years. The patient has tried ice, Tylenol , rest, activity modification all with minimal and non- lasting relief. The pain is worse with sleeping and his elbow drops back, putting on a coat/sweater. There is no pain with laying on the right shoulder. The pain radiates down the scapular spine. His pain is of the superior shoulder. The pain is sharp, intermittent and relieves with rest. -Sharif Ellis, , confirmed by patient IMAGING from 12/19/22: MRI of the right shoulder dated 12/19/2022 from [facility] [place], was ordered by a different physician, was reviewed by me, was corroborated with the radiology report, and shows AC joint degenerative changes with significant osseous edema at the distal clavicle and anteromedial acromion with associated capsular thickening and joint effusion. Intact rotator cuff. Slight redundancy to the subscapularis due to internal rotation during the imaging. Superior labral tearing is likely. -Sharif Ellis, 12/30 Patient, right-hand dominant, reports to therapy with concern of chronic right shoulder pain. He states he had this same pain about 15-20 years ago without any known injury, but it got better with physical therapy, where he did a lot of stretching. It became much more bearable. Gradually over the last year, it has worsened again without any known injury. He describes the pain as dull in the superior shoulder, radiating back to the spine of the scapula. He does not have numbness, tingling, neck pain, or other previous injuries to the shoulder. Aggravating factors include lifting, carrying (usually carries suitcases on him and his ' s travels), reaching, sleeping on his back with his arm at his side, putting on his jacket, or reaching behind him in the car. Easing factors include sleeping with his hands on his chest in supine and Tylenol as needed. The pain will improve after only a few minutes at night and allow him to sleep well. Doesn 't bother him on his side. Current exercise includes walking 2 miles a few times per week with his , but no strength training. His goals are to move his right arm without pain. Does endorse stiffness that seems to be worse in the evening. He stays active around the house with chores - cutting plants back, leaf blowing, cleaning gutters , and lawn mowing. Also enjoys [employer]. PMHx significant for atrial fibrillation on chronic anticoagulation, low back pain , and skin cell basal carcinoma cancer (follows up every 6 months at [facility]). Pain Comments 4/10 current with activity 0/10 at rest not rated/10 worst Date of Last Physician Visit 12/30/22 Current Work Status Retired Occupation Retired from [employer] work, enjoys [id number] Preferred Name Remi Precautions Treatment Precautions/Contraindications A-fib on chronic anticoagulation, basal cell carcinoma in remission, HTN meds Objective Other/Pertinent Objective CERVICAL AROM Pain-free, mildly limited into lateral flexion BL SHOULDER AROM Flexion: R 150 L 160 Abduction: R 170 L 170 Internal Rotation: R T12 L T9 External Rotation: WNL SHOULDER PROM Flexion: 155 deg, no pain with overpressure NECK/SHOULDER MMT: Shoulder flexion: R 4+/5 L 4+/ 5 Shoulder abduction: R 4+/5 L 4 +/5 Shoulder External Rotation at 0 deg: R 4+/5 w/ mild discomfort, L 4+/5 Shoulder Internal Rotation at 0 deg: R 4+/5 L 4+/5 Elbow flexion: R 5/5 L 5/5 Elbow extension R 5/5 L 5/5 SCAPULAR MECHANICS No scapular winging noted. Supervisor Sound Technician strength: Grossly WNL SPECIAL TESTS Shoulder impingement -Kumari Edi Test: + right -Neers Test: - -Painful arc: - Rotator Cuff -Belly Press: - -Empty can: - -Bear hug: - Instability: -A/P load and shift: - AC Joint Crossover: - Shear: - JOINT MOBILITY/PALPATION Mildly tender to palpation over spine of scapula and posterior AC joint; otherwise no other TTP noted. TX: Patient was educated on anatomy, physiology as it relates to current condition and HEP with use of handout/ [employer]. Patient verbalizes understanding and agrees with POC/goals. Patient was instructed in the following exercises to improve strength, tissue tolerance, and/or mobility with verbal/ tactile cues as needed: Access Code: [email or web address] URL: [email or web address] Date: 01/16/2023 Prepared by: Taniya Walter Exercises - Standing Shoulder Horizontal Abduction with Resistance - 1 x daily - 4-5 x weekly - 3 sets - 10 reps - Supine Shoulder Flexion With Dumbbell - 1 x daily - 4-5 x weekly - 2-3 sets - 10 reps - 5 seconds hold - 2 lbs weight - Shoulder Flexion Wall Slide with Towel - 1 x daily - 7 x weekly - 3 sets - 10 reps - Seated Overhead Press with Dumbbells - 1 x daily - 4-5 x weekly - 2-3 sets - 10 reps - 1 lb weight Functional Test Performed & Score Quick DASH: 15.9/100 = 15.9% Assessment Assessment/Impression Pt, right-hand dominant, is a 77 -year-old male who presents with concerns of worsening chronic right shoulder pain and low to moderate severity and irritability. Signs and symptoms are likely indicating / consistent with right AC joint arthritis as confirmed by imaging. Imaging also showed potential for rotator cuff tendinitis and known significant osseous edema at the distal clavicle/ anteromedial acromion. PMHx significant for atrial fibrillation on chronic anticoagulation, HTN medication, low back pain, and skin cancer. On exam, patient also demonstrates notable objective findings including normal cervical exam, mildly limited active/passive flexion ROM without pain, positive Kumari Edi, mildly limited IR, mild discomfort with resisted ER, and decreased rotator cuff/ scapular strength, leading to difficulties with lifting, carrying (usually carries suitcases on him and his ' s travels), reaching, sleeping on his back with his arm at his side, putting on his jacket, or reaching behind him in the car. Pt appears motivated to participate in therapy. Patient is appropriate for skilled physical therapy services to address the above deficits. Pt was agreeable with plan of care and goals established. Primary Functional Limitations lifting, carrying (usually carries suitcases on him and his 's travels), reaching, sleeping on his back with his arm at his side, putting on his jacket, or reaching behind him in the car Plan of Care Rehabilitation Potential Good Physical Therapy Goals In 2 sessions: Pt will demonstrate independence with HEP for ability to maximize progress in therapy. In 10-12 sessions: Pt will demonstrate full flexion and internal rotation ROM with consistently <2/10 pain as compared to opposite side for improved ability to reach behind him/put on his coat. Pt will improve strength of all shoulder major muscle groups to >4+/5 for improved ability to lift and carry items/travel with suitcase. Pt will report ability to sleep on his back with arms at his sides for improved ability to sleep in desired position. Coordination/Communication With Referral Source Treatment Plan/Direct Interventions Joint Mobilization,Manual Therapy,Neuromuscular Re-ed, Self-Care/Home Management, Therapeutic Activities, Therapeutic Exercises Frequency/Duration 1x/week for 8-12 weeks Patient Will Be Discharged From Therapy Completion of LTG(s), Independent w/HEP, Independently Progressing Evaluation Billing Untimed Code Treatment Minutes 25 Complexity Low Certification Information Initial Certification Date 01/16/23 Ending Certification Date 04/11/23 Provider Signature Shows Agreement With POC & Medical Necessity Physician Signature & Date Requested Please Sign/Date Here Physician Comment/Change : Physician NPI Number #
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
== END 2023-06-13 14:05 | disposition home or self-care (01) ==
PROVIDERS: PCP Internal Medicine; Visit Provider Orthopaedic Surgery Sports Medicine
DX: M19.011 Primary osteoarthritis, right shoulder (principal); M62.81 Muscle weakness (generalized); M25.511 Pain in right shoulder; Z51.89 Encounter for other specified aftercare
CPT/HCPCS: 97110; 97140; 97161

== ENCOUNTER 2023-12-07 09:26 | Outpatient (CLI) | payer MEDICARE, BC, SELFPAY ==
--- OUTSIDE RECORDS SUMMARY | 2023-12-08 09:26 | XMS_ITS | Clinical Summary ---
Author Organization [facility] Address [address] [place] [address] Care Team Providers Care Data Designer Name Role Phone Elsewhere, Pcp Primary Care Provider Unavailabl e Source Comments Patient records contain information from all sites at [facility]. For routine questions regarding patient records, call [phone] during business hours, M-F 8:00 AM - 5:00 PM Central Time. Record requests for emergency care only can be directed to [phone] at any time.[facility] Allergies No known active allergies Medications Medication Sig Dispensed Refills Start Date End Date Status atorvastatin (LIPITOR) 20 mg tablet Take 20 mg by mouth daily. Active carvedilol (COREG) 6.25 mg tablet Take by mouth 2 (two) times a day. 10/06/2017 Active losartan (COZAAR) 50 mg tablet Take 50 mg by mouth daily. 03/04/2022 Active warfarin (COUMADIN) 5 mg tablet Active warfarin (COUMADIN) 7.5 mg tablet Active Hospital, Clinic, or Other Facility Administered Medication Ordered Dose Route Frequency Start Date End Date Status lidocaine-EPINEPHrine 1%-1:200,000 injection 2-50 mL (XYLOCAINE W/EPI) 2 - 50 mL Ifil As needed 12/26/2017 Acti ve hbvecdpoauw-cwenrfvtl-MYVXTZT rine 0.25%-1%-1:200,000 injection 2-25 mL 2 - 25 mL inj As needed 12/26/2017 Active lidocaine-EPINEPHrine 1%-1:200,000 injection 2-50 mL (XYLOCAINE W/EPI)Indications:Basal Cell Carcinoma Skin Other Parts Face 2 - 50 mL inj As needed 03/15/2023 Active Encounters Date Type Department Care Team Description 12/04/2023 9:45 AM CDT Office Visit Department of Dermatology in [address] [phone] Shaylee Serrano M.D. Keratosis Actinic (Primary Dx); Nevi Multiple; Keratosis Seborrheic Discharge Disposition: Home or Self Care from Last 3 Months Family History Medical History Relation Name Comments Basal cell carcinoma Other Son Breast cancer Sister Kaitlynn Aguirre 50 years of ag e Hyperlipidemia Sister Kaitlynn Aguirre She started s tatins 2009' Relation Name Status Comments Other Son Alive Sister Kaitlynn Aguirre Social History Tobacco Use Types Packs/Day Years Used Date Smoking Tobacco: Never Passive Smoke Exposure: Yes Smokeless Tobacco: Never Tobacco Cessation:Counseling Given: Not Answered Alcohol Use Standard Drinks/Week Comments Yes 7 (1 standard drink = 0.6 oz pur e alcohol) Social Connection and Isolat ion Panel [NHANES] Answer Date Recorded In a typical week, how many times do you talk on the phone with family, friends, or neighbors? Twice a week 12/05/2019 How often do you get togethe r with friends or relatives? Twice a week 12/05/2019 How often do you attend chur ch or pentecostal services? More than 4 times per year 12/05/2019 Do you belong to any clubs o r organizations such as presybeterian groups, unions, fraternal or athletic groups, or school groups? Yes 12/05/2019 How often do you attend meet ings of the clubs or organizations you belong to? 1 to 4 times per year 12/05/2019 Are you , , di vorced, , never , or living with a partner? 12/05/2019 AUDIT-C Answer Date Recorded Q1: How often do you have a drink containing alcohol? 4 or more times a week 12/05/2019 Q2: How many drinks containi ng alcohol do you have on a typical day when you are drinking? 1 or 2 0 Q3: How often do you have si x or more drinks on one occasion? Never 12/05/2019 Overall Financial Resource Strain (CARDIA) Answe r Date Recorded How hard is it for you to pa y for the very basics like food, housing, medical care, and heating? Not hard at all 12/11/2022 [place] [facility] Occup[facility] - Occupational Stress Questionnaire Answer Date Recorded Do you feel stress - tense, restless, nervous, or anxious, or unable to sleep at night because your mind is troubled all the time - these days? Only a little 12/05/2019 Exercise Vital Sign Answer Date Recorde d On average, how many days pe r week do you engage in moderate to strenuous exercise (like a brisk walk)? 2 days 12/11/2022 On average, how many minutes do you engage in exercise at this level? 50 min 12/11/2022 Hunger Vital Sign Answer Date Recorded Within the past 12 months, y ou worried that your food would run out before you got the money to buy more. Never true 12/12/19 Within the past 12 months, t he food you bought just didn't last and you didn't have money to get more. Never true 12/11/2022 PRAPARE - Transportation Answer Date Re corded In the past 12 months, has l ack of transportation kept you from medical appointments or from getting medications? No 10/2022 In the past 12 months, has l ack of transportation kept you from meetings, work, or from getting things needed for daily living? No 12/11/2022 Nutrition Answer Date Recorded On average, how many serving s of fruits and vegetables do you eat per day (serving size is equal to 1 cup or approximately the size of a tennis ball)? 0-2 12/11/2022 Dental Answer Date Recorded Dental: Regular Dentist Yes 12/12/19 Employment Answer Date Recorded Employment status Retired 12/11/2022 Housing Stability Answer Date Recorded What is your living situation today? I have a [facility] place to live 12/11/2022 Education Answer Date Recorded What is the highest level of school you have completed or the highest degree you have received? Doctorate 12/05/2019 Sex and Gender Information Value Date Recorded Sex Assigned at Male 06/08/2022 11:31 AM CDT Gender Identity Male 06/08/2022 11:31 AM CDT Sexual Orientation Straight 02/21/2023 12 :09 PM LUMP INSPECTOR Last Filed Vital Signs Vital Sign Reading Time Taken Comments Blood Pressure 138/80 03/15/2023 11:00 AM LUMP INSPECTOR Pulse 65 03/15/2023 11:00 AM LUMP INSPECTOR Temperature - - Respiratory Rate - - Oxygen Saturation - - Inhaled Oxygen Concentration - - Weight - - Height - - Body Mass Index - - Plan of Treatment Upcoming Encounters Date Type Department Care Team (Late st Contact Info) Description 06/03/2024 11:00 AM CDT Office Visit Department of Dermatology in [address] [phone] Shaylee Serrano M.D. [address] [place] [phone] Discharge Disposition: Home or Self Care Health Maintenance Due Date Last Done Comments Hepatitis C Screening 1945 Sodium Level 01/05/2020 01/04/2019 Creatinine Level (Kidney Fun ction Test) 02/20/2020 02/19/2019, 01/04/2019, 11/23/2018, Additional history exists Potassium Level 02/20/2020 02/19/2019, 03/2018, 11/23/2018, Additional history exists Depression Screening (Annual PHQ-2) 03/06/2023 COVID-19 Vaccine (2023-2 5 season) 2023 12/19/2022, 11/15/2021, 06/09/2021, Additional history exists DTaP,Tdap,and Td Vaccines (3 - Td or Tdap) 11/13/2029 11/14/2019, 07/10/2007 Pneumococcal vaccine (65+ years) Completed 02/04/20 16, 07/05/2012 Zoster Vaccines Completed 11/19/2018, 04/2018, 02/21/2008 RSV vaccine - (32-3 6 weeks) or 60+ years Completed 12/20/2022 Fall Risk Screen (Annual) Completed 03/15/2023 Influenza Vaccine Completed 11/06/2023, , 11/15/2021, Additional history exists Medical Devices Implanted Type Area Cost Clerk Device Identifier Shelf Expiration Date Model / Serial / Lot Mesh Or Patch Mesh or Patch Bilateral: Groin Care Teams Data Designer Relationship Specialty Start Date End Date Elsewhere, Pcp PCP - General Family Medicine 10/09/17
--- OUTSIDE RECORDS SUMMARY | 2023-12-08 09:26 | XMS_ITS | Clinical Summary ---
Author Organization [employer] [facility] Address [place], [place] [address] Care Team Providers Care Enrichment Assistant Name Role Phone Lit Moody MD Primary Care Provider Allergies No known active allergies Medications Medication Sig Dispensed Refills Start Date End Date Status atorvastatin (LIPITOR) 20 mg tablet Take 20 mg by mouth once daily. Active warfarin (COUMADIN) 5 mg tablet 5 mg other days and 7.5 mg Thurs 0 10/16/2019 Active carvediloL (COREG) 6.25 mg tabletIndications:P aroxysmal atrial fibrillation (HC) Take 1 Tablet (6.25 mg) by mouth two times daily. 180 Tablet 3 11/17/2023 Active losartan (COZAAR) 50 mg tabletIndications:P AF (paroxysmal atrial fibrillation) (HC) Take 1 Tablet (50 mg) by mouth once daily. 90 Tablet 3 11/17/2023 Active carvediloL (COREG) 6.25 mg tabletIndications:P aroxysmal atrial fibrillation (HC) Take 1 Tablet (6.25 mg) by mouth two times daily. 180 Tablet 3 12/16/2022 11/17/2023 Discontinued (Reorder (E-cancel not sent)) losartan (COZAAR) 50 mg tabletIndications:P AF (paroxysmal atrial fibrillation) (HC) Take 1 Tablet (50 mg) by mouth once daily. 90 Tablet 3 12/16/2022 11/17/2023 Discontinued (Reorder (E-cancel not sent)) Active Problems Patient Care Coordination No te Formatting of this note migh t be different from the original. HF/Structural/Prevention Research Eligibility Review Date: 04/16/19 Upcoming Visit Location: [facility] Age: 73 y.o. Research Purpose Insurance Type: Medicare/Medicaid EF: 60-65 Valve/Imaging: HF: DNQ Structural: [place]: no d/t mod MR Prevention: DNQ Problem Noted Date Diagnosed Date Cardiomyopathy 10/24/2016 Overview (10/24/2016): Presumed rate related Persistent atrial fibrillation 08/12/2016 Encounters Date Type Department Care Team Description 12/08/2023 Telephone [facility] [address] [place] [address] Jatin Gutierrez MD Results (BMP results to fax) 11/17/2023 8:00 AM CDT Office Visit [facility] [address] [place] [address] Jatin Gutierrez MD CV Electrophysiology Est (One year f/u dx: PAF//PCP: Lit Moody MD/) 11/17/2023 Travel from Last 3 Months Social History Tobacco Use Types Packs/Day Years Used Date Smoking Tobacco: Never Smokeless Tobacco: Never Alcohol Use Standard Drinks/Week Comments Yes 7 (1 standard drink = 0.6 oz pur e alcohol) a Glass of wine a night Social Connections Answer Date Recorded Frequency of Communication with Friends and Fami ly Not on file 03/06/2021 Financial Resource Strain Answer Date R ecorded Difficulty of Paying Living Expenses Not on file 03/06/2021 Difficulty of Paying Living Expenses Not on file 03/06/2021 Sex and Gender Information Value Date Recorded Sex Assigned at Not on file Gender Identity Not on file Sexual Orientation Not on file Obstetrics History Last Filed Vital Signs Vital Sign Reading Time Taken Comments Blood Pressure 119/72 11/17/2023 8:12 AM CDT Pulse 66 11/17/2023 8:12 AM CDT Temperature 36.8 ??C (98.2 ??F) 01/05/2019 8:51 AM CD T Respiratory Rate 18 01/05/2019 8:51 AM CDT Oxygen Saturation 98% 11/17/2023 8:12 AM CDT Inhaled Oxygen Concentration - - Weight 92.2 kg (203 lb 4.8 oz) 11/17/2023 8:12 A M CDT Height 182.9 cm (6') 11/17/2023 8:12 AM CDT Body Mass Index 27.57 11/17/2023 8:12 AM CDT Plan of Treatment Health Maintenance Due Date Last Done Comments Tdap 1956 Depression screening for age 12+ 1957 Hepatitis C screening for ag e 18-79 09/04/1963 Tetanus booster 1965 Zoster (shingles) series for age 50+ (1 of 2) 09/04/1995 Medicare Wellness for age 65+ 2010 Pneumococcal series for age 65+ (1 of 1 - PCV) 2010 RSV vaccine for adults or (1 - 1-dose 75+ series) 2020 Influenza for age 65+ 11/05/2023 BMI (ht and wt on same day) for age 18+ 11/16/2024 11/17/2023, 12/16/2022, 10/14/2020, Additional history exists COVID-19 vaccine series Completed 11/06/19 24, 12/19/2022, 11/15/2021, Additional history exists Procedures Procedure Name Priority Date/Time Associated Diagnosis Comments EKG 12 LEAD Routine 11/17/2023 7:04 AM CDT Persistent atrial fibrillation (HC) from Last 3 Months Results * EKG 12 LEAD (11/17/2023 7:04 AM CDT) Interpretation Normal sinus rhythm with sinus arrhythmia Normal ECG Ventricular Rate 68 BPM Atrial Rate 68 BPM P-R Interval 162 ms QRS Duration 80 ms QT 394 ms QTc 418 ms P [place] 66 degrees R [place] 67 degrees T [place] 76 degrees 11/17/2023 7:04 AM CDT 11/18/2023 9:26 AM CDT Jatin Gutierrez MD EKG ORD from Last 3 Months Advance Directives * Full Code (Latest Code Status on File) Date Activated Date Inactivated Comments 01/04/2019 10:03 AM 01/05/2019 12:32 PM * Full Code Date Activated Date Inactivated Comments 08/20/2018 2:05 PM 08/20/2018 5:22 PM * Full Code Date Activated Date Inactivated Comments 12/02/2016 6:47 AM 12/02/2016 7:44 PM * Full Code Date Activated Date Inactivated Comments 10/25/2016 9:00 AM 10/27/2016 2:46 PM * Full Code Date Activated Date Inactivated Comments 10/24/2016 12:54 PM 10/25/2016 9:00 AM Care Teams Enrichment Assistant Relationship Specialty Start Date End Date Lit Moody MD [address] [place] [id number] PCP - General Internal Medicine 08/12/16
--- OUTSIDE RECORDS SUMMARY | 2023-12-08 09:27 | XMS_ITS | Encounter Summary ---
Author Organization [facility] Address [address] [place] [id number] Care Team Providers Care Hotel Valet Attendant Name Role Phone Elsewhere, Pcp Primary Care Provider Unavailabl e Reason for Referral * Outpatient (Routine) - Authorized Specialty Diagnoses / Procedures Referred By Contac t Referred To Contact Dermatology Shaylee Serrano M.D. [address] [place] [address] [facility] Region Referral ID Status Reason Start Date Expiration Date V isits Requested Visits Authorized [id number] Authorized 12/04/2023 06/04/2025 1 1 Scheduling Instructions Skin cancer screening exam in 6-12 months Reason for Visit * Reason Comments Skin Check * Outpatient (Routine) - Closed Specialty Diagnoses / Procedures Referred By Conthany t Referred To Contact Dermatology Shaylee Serrano M.D. [address] [place] [address] [facility] Referral ID Status Reason Start Date Expiration Date Visits Re quested Visits Authorized [id number] Closed 06/05/2023 12/04/2024 1 1 Encounter Details Date Type Department Care Team (Late st Contact Info) Description 12/04/2023 9:45 AM CDT Office Visit Department of Dermatology in [address] [phone] Shaylee Serrano M.D. [address] [place] [phone] Keratosis Actinic (Primary Dx); Nevi Multiple; Keratosis Seborrheic Discharge Disposition: Home or Self Care Social History Tobacco Use Types Packs/Day Years Used Date Smoking Tobacco: Never Passive Smoke Exposure: Yes Smokeless Tobacco: Never Alcohol Use Standard Drinks/Week [...] often do you attend chur ch or gnosticist services? More than 4 times per year 12/05/2019 Do you belong to any clubs o r organizations such as baptism groups, unions, fraternal or [...] and heating? Not hard at all 12/11/2022 [facility] [place] of Occupat ional Health - Occupational Stress [...] your living situation today? I have a [facility] place to live 12/11/2022 Education Answer Date Recorded What is the highest level of school you have completed or the highest degree you have received? 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 - 12/04/2023 9:45 AM CDT SUBJECTIVE CHIEF COMPLAINT / REASON FOR VISIT Full skin cancer screening HISTORY OF PRESENT ILLNESS Remi Aguirre is a pleasant 78 y.o. male who presents for a full skin cancer screening. The patient was last seen by me in Dermatology clinic on 06/05/23. He has a history of multiple basal cell carcinomas, most recently a nodular basal cell carcinoma involving the left upper zygomatic cheek, status post Mohs surgery on 03/15/[address] Stiles at [facility]. He denies a personal history of melanoma or family history for melanoma. He uses sunscreen. He denies any new or changing lesions today. MEDICAL HISTORY 1. Left abdomen and arms: History of several basal cell carcinomas, treated elsewhere in the 2. Right upper forehead: History of nodular basal cell carcinoma, status post Mohs surgery on 12/26/[address] White at [facility] 3. Right posterior upper arm and right upper paraspinal back: History of superficial basal cell carcinoma x 2, status post curettage and cryotherapy on 01/23/[address] Serrano at [facility] 4. Right upper cheek: History of basal cell carcinoma, status post Mohs surgery on 06/15/[address] White at [facility] 5. Left upper zygomatic cheek: History of nodular basal cell carcinoma, status post Mohs surgery on03/15/[address] Stiles at [facility] 6. Negative for melanoma FAMILY HISTORY Negative for melanoma OBJECTIVE PHYSICAL EXAMINATION General: Awake, alert, in no acute distress, and with appropriate affect. Eyes: No scleral injection or icterus. No eyelid abnormalities. Lymph: No lower extremity edema. Skin: I have examined the scalp, face, neck, chest, abdomen, back, bilateral upper extremities, andbilateral lower extremities. Examination of the left upper zygomatic cheek, right upper cheek, right posterior upper arm, right upper paraspinal back, right upper forehead, left abdomen and arms reveals no evidence for recurrence of multiple basal cell carcinomas. Examination of the left forearm reveals actinic keratoses x 3. Examination of the face, trunk and extremities reveals multiple benign-appearing nevi, lentigines and seborrheic keratoses. Examination of the feet reveals several stucco keratosis. Examination of the right distal sauceda reveals a lichenoid keratosis x 1. Examination today reveals no suspicious lesions for skin cancer. ASSESSMENT / PLAN #1 Left forearm: Actinic keratosis x 3 Given the precancerous nature of this lesion(s), treatment is medically indicated. After discussionof the risks, benefits and alternatives to treatment with cryotherapy, informed consent was obtained. We treated a total of three lesion(s) with two 10-second freeze-thaw cycles of liquid nitrogen cryotherapy. The patient tolerated the procedure well. Aftercare instructions were provided in writtenand verbal form to the patient. Should any of these lesions recur, the patient should return for biopsy or further evaluation. Follow up in 1-2 months for recheck if these areas do not complete resolve. #2 Face, trunk and extremities: Multiple nevi and lentigines The ABCDE criteria for melanoma was reviewed with the patient. None of the patient's nevi reach theclinical threshold for biopsy. I recommend continued sun [...] with the patient. No treatment is required. Irecommend continued observation. Should this lesion change in size, color, texture, or shape or develop symptoms such as itching or bleeding, I recommend an immediate return visit for reassessment. #4 Left abdomen and arms: History of several basal cell carcinomas, treated elsewhere in the ,no recurrence No clinical evidence of local recurrence today. Recommended monthly self-skin examinations to evaluate for new, changing, symptomatic, or otherwise worrisome lesions. Signs and symptoms of skin cancer discussed. Photoprotection was recommended. Return to Dermatology in 6-12 months for a full skin exam or immediately if any new or changing lesions are noted. #5 Right upper forehead: History of nodular basal cell carcinoma, status post Mohs surgery on 12/26/[address] White at [facility], no recurrence No clinical evidence of local recurrence today. Recommended monthly self-skin examinations to evaluate for new, changing, symptomatic, or otherwise worrisome lesions. Signs and symptoms of skin cancer discussed. Photoprotection was recommended. Return to Dermatology in 6-12 months for a full skin exam or immediately if any new or changing lesions are noted. #6 Right posterior upper arm and right upper paraspinal back: History of superficial basal cell carcinoma x 2, status post curettage and cryotherapy on 01/23/[address] Serrano at [facility], no recurrence No clinical evidence of local recurrence today. Recommended monthly self-skin examinations to evaluate for new, changing, symptomatic, or otherwise worrisome lesions. Signs and symptoms of skin cancer discussed. Photoprotection was recommended. Return to Dermatology in 6-12 months for a full skin exam or immediately if any new or changing lesions are noted. #7 Right upper cheek: History of basal cell carcinoma, status post Mohs surgery on 06/15/[address] White at [facility], no recurrence No clinical evidence of local recurrence today. Recommended monthly self-skin examinations to evaluate for new, changing, symptomatic, or otherwise worrisome lesions. Signs and symptoms of skin cancer discussed. Photoprotection was recommended. Return to Dermatology in 6-12 months for a full skin exam or immediately if any new or changing lesions are noted. #8 Left upper zygomatic cheek: History of nodular basal cell carcinoma, status post Mohs surgery on03/15/[address] Stiles at [facility], no recurrence No clinical evidence of local recurrence today. Recommended monthly self-skin examinations to evaluate for new, changing, symptomatic, or otherwise worrisome lesions. Signs and symptoms of skin cancer discussed. Photoprotection was recommended. Return to Dermatology in 6-12 months for a full skin exam or immediately if any new or changing lesions are noted. PATIENT EDUCATION: Ready to learn. No apparent learning barriers were identified. Learning preferences include listening. Explained diagnosis and treatment plan; patient/guardian of patient expressed understanding of the content. By signing my name below, I, Shelia Fernandez, attest that this documentation has been prepared underthe direction and in the presence of Shaylee Serrano M.D. Electronically Signed: armida Stacy. 12/04/2023. 9:45 AM CDT. IShaylee M.D., personally performed the services described in this documentation. All medical record entries made by the scribe were at my direction and in my presence. I have reviewed the chart and discharge instructions (if applicable) and agree that the record reflects my personal performance and is accurate and complete. Shaylee Serrano M.D. Scribed for Shaylee Serrano M.D. by Shelia Fernandez, on 12/04/2023, 10:09 AM CDT. documented in this encounter Plan of Treatment Upcoming Encounters Date Type Department Care Team (Late st Contact Info) Description 06/03/2024 11:00 AM CDT Office Visit Department of Dermatology in [address] [phone] Shaylee Serrano M.D. [address] [place] [address] Discharge Disposition: Home or Self Care Scheduled Referrals Name Type Priority Associated Diagnoses Order Schedule Dermatology office visit (clinic) Outpatient Referral Routine Expected: 06/02/2024 (Approximate), Expires: 03/04/2025 documented as of this encounter Visit Diagnoses Diagnosis Keratosis Actinic- Primary Nevi Multiple Keratosis Seborrheic documented in this encounter Care Teams Hotel Valet Attendant Relationship Specialty Start Date End Date Elsewhere, Pcp PCP - General Family Medicine 10/09/17 documented as of this encounter
--- OUTSIDE RECORDS SUMMARY | 2023-12-08 09:27 | XMS_ITS | Referral Summary ---
Author Organization [facility] Address [address] [place] [address] Care Team Providers Care Chess Instructor Name Role Phone Elsewhere, Pcp Primary Care Provider Unavailabl e Source Comments Patient records contain information from all sites at [facility]. For routine questions regarding patient records, call [phone] during business hours, M-F 8:00 AM - 5:00 PM Central Time. Record requests for emergency care only can be directed to [phone] at any time.[facility] Encounters Date Type Department Care Team Description 12/04/2023 9:45 AM CDT Office Visit Department of Dermatology in [address] [phone] Shaylee Serrano M.D. Keratosis Actinic (Primary Dx); Nevi Multiple; Keratosis Seborrheic Discharge Disposition: Home or Self Care from Last 3 Months Allergies No known active allergies Medications Medication [...] mL Ifil As needed 12/26/2017 Acti ve nsfbshdhaah-uhhonzogh-HBXEJDX rine 0.25%-1%-1:200,000 injection 2-25 mL 2 - 25 mL inj As needed 12/26/2017 Active lidocaine-EPINEPHrine 1%-1:200,000 injection 2-50 mL (XYLOCAINE W/EPI)Indications:Basal Cell Carcinoma Skin Other Parts Face 2 - 50 mL inj As needed 03/15/2023 Active Social History Tobacco Use Types Packs/Day Years [...] 12/05/2019 How often do you attend chur or synagogue services? More than 4 times per year 12/05/2019 Do you belong to any clubs o r organizations such as sikhism groups, unions, fraternal or [...] and heating? Not hard at all 12/11/2022 [facility] [employer] - Occupational Stress [...] your living situation today? I have a [facility] place to live 12/11/2022 Education Answer Date Recorded What is the highest level of school you have completed or the highest degree you have received? Doctorate 12/05/2019 Sex and Gender Information Value Date Recorded Sex Assigned at Male 06/08/2022 11:31 AM CDT Gender Identity Male 06/08/2022 11:31 AM CDT Sexual Orientation Straight 02/21/2023 12 :09 PM [employer]IG[employer] Last Filed Vital Signs Vital Sign Reading Time Taken Comments Blood Pressure 138/80 03/15/2023 11:00 AM [employer] Pulse 65 03/15/2023 11:00 AM [employer] Temperature - - Respiratory Rate - - Oxygen Saturation - - Inhaled Oxygen Concentration - - Weight - - Height - - Body Mass Index - - Plan of Treatment Upcoming Encounters Date Type Department Care Team (Late st Contact Info) Description 06/03/2024 11:00 AM CDT Office Visit Department of Dermatology in [address] [phone] Shaylee Serrano M.D. [address] [place] [address] Discharge Disposition: Home or Self Care Medical Devices Implanted Type Area Medical Insurance Claims Processor Device Identifier Shelf Expiration Date Model / Serial / Lot Mesh Or Patch Mesh or Patch Bilateral: Groin Care Teams Chess Instructor Relationship Specialty Start Date End Date Elsewhere, Pcp PCP - General Family Medicine 10/09/17
--- OUTSIDE RECORDS SUMMARY | 2023-12-08 09:27 | XMS_ITS ---
Author Organization [facility] Address [address] [place] [address] Care Team Providers Care Tire Cord Weaver Name Role Phone Unavailable Unavailable Unavailable Surgery Details Not on file Complications Check Surgery Details section. Procedure Estimated Blood Loss Check Surgery Details section. Procedure Findings Check Surgery Details section. Procedure Specimens Taken Check Surgery Details section.
== END 2023-12-07 09:27 | disposition home or self-care (01) ==
LOC: NFLDREF 12-08 09:25
PROVIDERS: PCP Internal Medicine; Referring Provider Internal Medicine; Visit Provider Internal Medicine
DX: Z00.00 Encounter for general adult medical examination without abnormal findings (principal); E78.5 Hyperlipidemia, unspecified; Z13.9 Encounter for screening, unspecified; Z51.81 Encounter for therapeutic drug level monitoring; Z79.01 Long term (current) use of anticoagulants; Z12.5 Encounter for screening for malignant neoplasm of prostate
CPT/HCPCS: 80053; 80061; G0103

== ENCOUNTER 2024-02-12 10:55 | Outpatient (CLI) | payer MEDICARE, BC, SELFPAY | END 2024-02-12 10:56 | disposition home or self-care (01) | LOC: NFLDREF 02-14 08:00 | PROVIDERS: PCP Internal Medicine; Referring Provider Internal Medicine; Visit Provider Internal Medicine | DX: Z51.81 Encounter for therapeutic drug level monitoring (principal); Z79.01 Long term (current) use of anticoagulants | CPT/HCPCS: 85610 ==

== ENCOUNTER 2024-02-15 08:49 | Outpatient (CLI) | payer MEDICARE, BC, SELFPAY | END 2024-02-15 08:50 | disposition home or self-care (01) | PROVIDERS: PCP Internal Medicine; Referring Provider Internal Medicine; Visit Provider Internal Medicine | DX: I48.91 Unspecified atrial fibrillation (principal); Z51.81 Encounter for therapeutic drug level monitoring; Z79.01 Long term (current) use of anticoagulants | CPT/HCPCS: 85610 ==

== ENCOUNTER 2024-02-29 08:50 | Outpatient (CLI) | payer MEDICARE, BC, SELFPAY | END 2024-02-29 08:51 | disposition home or self-care (01) | LOC: NFLDREF 03-01 06:38 | PROVIDERS: Absent Provider Internal Medicine; PCP Internal Medicine; Referring Provider Internal Medicine; Visit Provider Internal Medicine | DX: I48.91 Unspecified atrial fibrillation (principal); Z79.01 Long term (current) use of anticoagulants | CPT/HCPCS: 85610 ==

== ENCOUNTER 2024-03-26 12:42 | Outpatient (CLI) | payer MEDICARE, BC, SELFPAY ==
--- NOTE | 2024-03-26 13:00 | CRLHL7_ITS ---
For Patients: As a result of the Century Cures Act, medical imaging exams and procedure reports are released immediately into your electronic medical record. You may view this report before your referring provider. If you have questions, please contact your health care provider. Indication: Dorsalgia Technique: Multiplanar, multisequence, MRI of the lumbar spine, obtained without contrast. Comparison: Lumbar spine x-ray 02/07/2024 Findings: Thoracolumbar levoconvex curvature, with preserved lumbar lordosis. Moderately severe chronic L1 superior endplate anterior wedge compression deformity, with 4 mm cortical retropulsion. Remaining vertebral body heights are grossly maintained. No acute osseous abnormality identified in the lumbar spine. Presumed Modic type 1 signal changes at the partially visualized T11 superior endplate. No suspicious bone marrow lesion. Conus medullaris terminates at L2-L3. No suspicious findings identified in the paraspinal soft tissues. Bilateral renal cysts, including a large left renal cyst measuring approximately 13 x 11 cm on the coronal localizer. Mild degenerative changes of the included SI joints. T12-L1: L1 cortical retropulsion, mild facet arthropathy. No neural foraminal or spinal canal stenosis L1-L2: Right posterior disc-osteophyte complex, right asymmetric facet arthropathy. No left, mild right neural foraminal narrowing. No spinal canal stenosis. L2-L3: Shallow left eccentric disc bulge, left posterolateral annular fissure. No neural foraminal or spinal canal stenosis. L3-L4: Mild diffuse disc bulge, left posterolateral annular fissure, mild facet arthropathy. Mild right, moderate left neural foraminal stenosis. Mild spinal canal narrowing, encroaching upon the descending right L3 nerve roots along the lateral recess L4-L5: Diffuse disc bulge, mild facet arthropathy. Mild right, moderate left neural foraminal stenosis. Mild-moderate spinal canal narrowing. L5-S1: Minimal disc bulge, central annular fissure, left asymmetric facet arthropathy. No neural foraminal or spinal canal stenosis. Impression: 1. Moderately severe chronic L1 superior endplate compression deformity with 4 mm cortical retropulsion. 2. Scattered spondylosis, thoracolumbar levoconvex curvature, and Modic endplate changes as detailed. 3. At L1-L2, mild right neural foraminal narrowing. 4. At L3-L4, moderate left neural foraminal stenosis, mild right neural foraminal narrowing, and mild spinal canal narrowing encroaching upon the descending right L3 nerve roots along the lateral recess. 5. At L4-L5, moderate left neural foraminal stenosis, mild right neural foraminal narrowing, and mild-moderate spinal canal narrowing. 6. Partially visualized large left renal cyst measuring approximately 13 cm. Dictated by Edith Sargent MD @ 03/27/2024 9:23:13 AM (Electronically Signed)
== END 2024-03-26 12:43 | disposition home or self-care (01) ==
LOC: MRI 12:43
PROVIDERS: PCP Internal Medicine; Visit Provider Internal Medicine
DX: M54.9 Dorsalgia, unspecified (principal); M43.8X6 Other specified deforming dorsopathies, lumbar region; M47.895 Other spondylosis, thoracolumbar region; M51.26 Other intervertebral disc displacement, lumbar region; M48.061 Spinal stenosis, lumbar region without neurogenic claudication; N28.1 Cyst of kidney, acquired
CPT/HCPCS: 72148

== ENCOUNTER 2024-12-19 08:00 | Outpatient (CLI) | payer MEDICARE, BC, SELFPAY | END 2024-12-19 08:01 | disposition home or self-care (01) | LOC: NFLDREF 12-21 11:40 | PROVIDERS: PCP Internal Medicine; Referring Provider Internal Medicine; Visit Provider Internal Medicine | DX: E78.5 Hyperlipidemia, unspecified (principal); I48.91 Unspecified atrial fibrillation; Z79.01 Long term (current) use of anticoagulants; Z12.5 Encounter for screening for malignant neoplasm of prostate | CPT/HCPCS: 80053; 80061; G0103 ==